=== PATIENT | female | born 1995 | race Caucasian/White ===

== ENCOUNTER 2017-11-03 11:07 | Emergency (ER) | payer MEDICAID ==
[2015-03-03 13:05] VITALS: Wt 63.5 kg
[~2017-11-03 11:07] MED LIST: ACE3 PO; AMIT-108 PO; AMO875 PO; ASPI-692 PO; AUG875 PO; AZIT1PAC21 PO; BUTA1TAB14 PO; CEP500 PO; CIP500 PO; DOCU240C84 PO; ETON68IM2 SQ; FLU20 PO; FLUO-201 PO; FLUO-202 PO; HYDC1T TOP; IBUP-1618 PO; IBUP600T22 PO; KET10 PO; LOR5/325 PO; NIT100 PO; NORG1TAB74 PO; NORG1TAB75 PO; ONDA4TAB PO; OXYC-865 PO; PHEN-530 PO; PHEN240S3 PO; POLY119P24 PO; PREN-176 PO; PREN-85 PO; PROM12.514 RC; SULF-198 PO; SUMA50TA34 PO; TRI SPRINTEC; TRI SPRINTEC PO; birth control pill
[2017-11-03] MEDS ORDERED: FLUO40CA76 PO (11:16)
[2017-11-03] MEDS ORDERED: NORG1TAB75 PO (11:16)
--- NOTE | 2017-11-03 11:17 | ER Report ---
History and Physical Time Seen By MD: 11:17 Hx. of Stated Complaint: Lower abdomen pain, bleeding with intercourse HPI/ROS CHIEF COMPLAINT: Lower abdominal pain, bleeding after intercourse HISTORY OF PRESENT ILLNESS: 21-year-old female patient presents to emergency room with complaint of lower abdominal pain and bleeding after intercourse. Patient states this been going on for the past 6 months off and on. She states this been very heavily for the past week. She states that she has had significant amounts of bleeding after intercourse last 3 times a day had intercourse. She states she's also noticed some pain with intercourse. She states that the pain is worse with any type of activity. She denies any nausea, vomiting or diarrhea. She states that eating does not seem to make the pain better or worse. Patient states she is not taking any medication for this. REVIEW OF SYSTEMS: Respiratory: No cough, no dyspnea. Cardiovascular: No chest pain, no palpitations. Gastrointestinal: As noted above Musculoskeletal: No back pain. Allergies: Coded Allergies: No Known Drug Allergies (Verified , 11/03/17) Home Meds Active Scripts Metronidazole (METRONIDAZOLE) 500 Mg Tablet, 500 MG PO BID, #28 TAB Prov:DAGOBERTO REYNAGA IS SUPPORT ANALYST 11/03/17 Doxycycline Hyclate (DOXYCYCLINE HYCLATE) 100 Mg Tablet, 100 MG PO BID, #28 TAB Prov:DAGOBERTO REYNAGAP 11/03/17 Reported Medications Norgestimate-Ethinyl Estradiol (TRI-SPRINTEC) 1 Each Tablet, 1 EACH PO DAILY 11/03/17 Fluoxetine Hcl (PROZAC) 40 Mg Capsule, 40 MG PO QDAY, CAPSULE 11/03/17 Butalb/Acetaminophen/Caff 50-325-40 Mg (FIORICET 50-325-40) 1 Each Tablet, 1-2 TAB PO Q4H Y for HEADACHE, #30 TAB 10/30/17 Discontinued Reported Medications [Tri Sprintec] No Conflict Check, PO QDAY 10/29/17 Fluoxetine Hcl (PROZAC) 10 Mg Capsule, 10 MG PO QDAY, CAPSULE 03/03/15 Aspirin/Acetaminophen/Caffeine (EXCEDRIN MIGRAINE CAPLET) 1 Each Tablet, 1 EACH PO PRN Y for MIGRAINE 10/29/17 Vit/Fe Fum/Calderon/Fa ( 19 TABLET) 1 Each Tablet, 1 EACH PO QDAY 11/08/14 Discontinued Scripts Oxycodone Hcl/Acetaminophen (PERCOCET 5-325 MG TABLET) 1 Each Tablet, 1 EACH PO Q4-6H Y for PAIN, #10 TAB Prov:DAGOBERTO REYNAGA IS SUPPORT ANALYST 02/07/16 Past Medical/Surgical History Patient has a past medical history of migraines, hypertension, asthma, frequent UTI, right ankle fracture, back pain, bleeding disorder, eczema, depression, substance abuse. Patient has a surgical history of tonsillectomy, wisdom teeth removed, section 2. Patient denies any pertinent family medical history. Reviewed Nurses Notes: Yes Hx Smoking: Yes Smoking Status: Current: Every Day Smoker, Former Smoker, Light Tobacco Smoker Exposure to Second Hand Smoke?: Yes Hx Substance Use Disorder: No Hx Alcohol Use: No Constitutional Vital Sign - Last 24 Hours 11/03/17 11/03/17 11/03/17 11/03/17 11:07 11:10 11:12 11:30 Temp 97.9 Pulse ??? 69 Resp 16 B/P (MAP) 133/91 133/91 (105) 125/77 (93) Pulse Ox 96 O2 Delivery Room Air 11/03/17 11/03/17 11/03/17 11:37 12:00 12:07 Pulse 56 67 B/P (MAP) 110/75 (87) Pulse Ox 98 94 Physical Exam General Appearance: The patient is alert, has no immediate need for airway protection and no current signs of toxicity. Respiratory: Chest is non tender, lungs are clear to auscultation. Cardiac: regular rate and rhythm Gastrointestinal: Abdomen is soft and tender in the suprapubic region bilaterally, no masses, bowel sounds normal. Musculoskeletal: Neck: Neck is supple and non tender. Extremities have full range of motion and are non tender. Skin: No rashes or lesions. DIFFERENTIAL DIAGNOSIS: After history and physical exam differential diagnosis was considered for PID, bacterial vaginitis, appendicitis, urinary tract infection. Medical Decision Making Data Points Result Diagram: 11/03/17 1122 11/03/17 1122 Laboratory Hematology Test 11/03/17 11:04 11/03/17 11:22 11/03/17 12:02 Urine Color Straw Urine Clarity Clear Urine pH 6.0 pH (4.8-9.5) Urine Specific [place] 1.003 Urine Protein Negative mg/dL (NEGATIVE) Urine Glucose (UA) Negative mg/dL (NEGATIVE) Urine Ketones Negative mg/dL (NEGATIVE) Urine Blood Small (NEGATIVE) Urine Nitrite Negative (NEGATIVE) Urine Bilirubin Negative (NEGATIVE) Urine Urobilinogen Negative mg/dL (0.2-1.9) Urine Leukocyte Esterase Trace (NEGATIVE) Urine RBC <1 /HPF (0-2/HPF) Urine WBC 2 /HPF (0-5/HPF) Urine Squamous Epithelial Cells Many /LPF (</=FEW) Urine Bacteria Few /HPF (NONE-FEW) Urine Mucus None /HPF (NONE-FEW) Red Blood Count 4.87 M/uL (4.17-5.56) Mean Corpuscular Volume 85.9 fL (80.0-96.0) Mean Corpuscular Hemoglobin 29.8 pg (26.0-33.0) Mean Corpuscular Hemoglobin Concent 34.6 g/dL (32.0-36.0) Red Cell Distribution Width 13.2 % (11.5-14.5) Mean Platelet Volume 8.7 fL (7.2-11.1) Neutrophils (%) (Auto) 58.3 % (39.4-72.5) Lymphocytes (%) (Auto) 36.7 % (17.6-49.6) Monocytes (%) (Auto) 3.8 % (4.1-12.4) Eosinophils (%) (Auto) 0.8 % (0.4-6.7) Basophils (%) (Auto) 0.4 % (0.3-1.4) Nucleated RBC Relative Count (auto) 0.0 /100WBC Neutrophils # (Auto) 5.2 K/uL (2.0-7.4) Lymphocytes # (Auto) 3.2 K/uL (1.3-3.6) Monocytes # (Auto) 0.3 K/uL (0.3-1.0) Eosinophils # (Auto) 0.1 K/uL (0.0-0.5) Basophils # (Auto) 0.0 K/uL (0.0-0.1) Nucleated RBC Absolute Count (auto) 0.00 K/uL Sodium Level 139 mmol/L (137-145) Potassium Level 3.9 mmol/L (3.5-5.0) Chloride Level 102 mmol/L (98-107) Carbon Dioxide Level 25 mmol/L (22-31) Blood Urea Nitrogen 13 mg/dl (7-18) Creatinine 0.80 mg/dl (0.52-1.04) Glomerular Filtration Rate Calc > 60.0 Random Glucose 83 mg/dl (75-110) Calcium Level 9.5 mg/dl (8.4-10.2) Total Bilirubin 0.3 mg/dl (0.2-1.3) Aspartate Amino Transf (AST/SGOT) 35 U/L (0-35) Alanine Aminotransferase (ALT/SGPT) 23 U/L (0-56) Alkaline Phosphatase 67 U/L (0-126) C-Reactive Protein 1.5 mg/dl (<1.0) Total Protein 7.6 g/dl (6.3-8.2) Albumin 4.5 g/dl (3.5-5.0) Human Chorionic Gonadotropin, Qual Negative (NEGATIVE) Chemistry Test 11/03/17 11:04 11/03/17 11:22 11/03/17 12:02 Urine Color Straw Urine Clarity Clear Urine pH 6.0 pH (4.8-9.5) Urine Specific [place] 1.003 Urine Protein Negative mg/dL (NEGATIVE) Urine Glucose (UA) Negative mg/dL (NEGATIVE) Urine Ketones Negative mg/dL (NEGATIVE) Urine Blood Small (NEGATIVE) Urine Nitrite Negative (NEGATIVE) Urine Bilirubin Negative (NEGATIVE) Urine Urobilinogen Negative mg/dL (0.2-1.9) Urine Leukocyte Esterase Trace (NEGATIVE) Urine RBC <1 /HPF (0-2/HPF) Urine WBC 2 /HPF (0-5/HPF) Urine Squamous Epithelial Cells Many /LPF (</=FEW) Urine Bacteria Few /HPF (NONE-FEW) Urine Mucus None /HPF (NONE-FEW) White Blood Count 8.9 k/uL (4.5-11.0) Red Blood Count 4.87 M/uL (4.17-5.56) Hemoglobin 14.5 g/dL (12.0-16.0) Hematocrit 41.8 % (34.0-47.0) Mean Corpuscular Volume 85.9 fL (80.0-96.0) Mean Corpuscular Hemoglobin 29.8 pg (26.0-33.0) Mean Corpuscular Hemoglobin Concent 34.6 g/dL (32.0-36.0) Red Cell Distribution Width 13.2 % (11.5-14.5) Platelet Count 293 K/uL (150-450) Mean Platelet Volume 8.7 fL (7.2-11.1) Neutrophils (%) (Auto) 58.3 % (39.4-72.5) Lymphocytes (%) (Auto) 36.7 % (17.6-49.6) Monocytes (%) (Auto) 3.8 % (4.1-12.4) Eosinophils (%) (Auto) 0.8 % (0.4-6.7) Basophils (%) (Auto) 0.4 % (0.3-1.4) Nucleated RBC Relative Count (auto) 0.0 /100WBC Neutrophils # (Auto) 5.2 K/uL (2.0-7.4) Lymphocytes # (Auto) 3.2 K/uL (1.3-3.6) Monocytes # (Auto) 0.3 K/uL (0.3-1.0) Eosinophils # (Auto) 0.1 K/uL (0.0-0.5) Basophils # (Auto) 0.0 K/uL (0.0-0.1) Nucleated RBC Absolute Count (auto) 0.00 K/uL Glomerular Filtration Rate Calc > 60.0 Calcium Level 9.5 mg/dl (8.4-10.2) Total Bilirubin 0.3 mg/dl (0.2-1.3) Aspartate Amino Transf (AST/SGOT) 35 U/L (0-35) Alanine Aminotransferase (ALT/SGPT) 23 U/L (0-56) Alkaline Phosphatase 67 U/L (0-126) C-Reactive Protein 1.5 mg/dl (<1.0) Total Protein 7.6 g/dl (6.3-8.2) Albumin 4.5 g/dl (3.5-5.0) Human Chorionic Gonadotropin, Qual Negative (NEGATIVE) Urinalysis Test 11/03/17 11:04 Urine Color Straw Urine Clarity Clear Urine pH 6.0 pH (4.8-9.5) Urine Specific [place] 1.003 Urine Protein Negative mg/dL (NEGATIVE) Urine Glucose (UA) Negative mg/dL (NEGATIVE) Urine Ketones Negative mg/dL (NEGATIVE) Urine Blood Small (NEGATIVE) Urine Nitrite Negative (NEGATIVE) Urine Bilirubin Negative (NEGATIVE) Urine Urobilinogen Negative mg/dL (0.2-1.9) Urine Leukocyte Esterase Trace (NEGATIVE) Urine RBC <1 /HPF (0-2/HPF) Urine WBC 2 /HPF (0-5/HPF) Urine Squamous Epithelial Cells Many /LPF (</=FEW) Urine Bacteria Few /HPF (NONE-FEW) Urine Mucus None /HPF (NONE-FEW) Microbiology Microbiology Date/Time Source Procedure Growth Status 11/03/17 12:02 Cervical Wet Prep - Final Complete EKG/Imaging Imaging ABDOMEN/PELVIS WITH CONTRAST HISTORY:abdominal pain TECHNIQUE: CT abdomen and pelvis with intravenous contrast. Contiguous axial images of the abdomen and pelvis was performed from the lung bases to the symphysis pubis. One of the following dose optimization techniques was utilized in the performance of this exam: Automated exposure control; adjustment of the mA and/ or kV according to the patient's size; or use of an iterative reconstruction technique. Specific details can be referenced in the facility's radiology CT exam operational policy. CONTRAST: 75 cc of Isovue-370 COMPARISON: None. FINDINGS: Visualized lung bases: Several small pulmonary micronodules are noted at the lung bases likely benign in this age group. These nodules measure up to 3 mm. Nodules are seen in the right middle lobe image 6, right lower lobe image 7, left for lobe image 5, left upper lobe image 9. Hepatobiliary: Negative. Spleen: Negative. Adrenals: Negative. Kidneys/: Negative. Pancreas: Negative. GI: Patient is constipated but there is no bowel obstruction or focal inflammation. Appendix is not visualized but there are no inflammatory changes around cecum. Vessels/spaces/nodes: Negative. Bones/soft tissues: Bilateral L5 spondylolysis is noted. IMPRESSION: 1. A source for abdominal pain is not forthcoming on the current study. The appendix is not visualized but there are no inflammatory changes around cecum. 2. Constipation. 3. Small pulmonary micronodules at the lung bases likely benign in this age group. Report Dictated By: Jacobo Mcneil MD at 11/03/2017 1:18 PM Report E-Signed By: Jacobo Mcneil MD at 11/03/2017 1:25 PM ED Course/Re-evaluation ED Course Patient was admitted and examined, history and physical were obtained. Differential diagnoses were considered. On examination lungs are clear, heart is regular, abdomen was soft. Patient did have some suprapubic abdominal pain. She had pain with palpation. An IV was started, CBC, CMP, CRP, urinalysis were obtained. The lab showed a normal white count, CRP was elevated, urinalysis was negative. I discussed the findings with the patient. A pelvic exam was done as described below. I discussed the findings with patient. I believe the bleeding with intercourse is likely caused from her friable cervix. I believe that she likely has a PID. A CT scan of abdomen and pelvis was done to make sure there is not any significant inflammatory changes in the pelvis. I was read by the radiologist as normal. I discussed the findings with the patient and her significant other. Due to her age and do worry about possible sexual chest disease. We will go ahead and treat her with doxycycline as well as metronidazole. She states those for the next 2 weeks. We will go ahead and treat her significant other with azithromycin 1 g. I encouraged sexual abstinence all she is on antibiotics as long as she is feeling well. I would like her to follow-up with her catering administrative assistant next week. Patient and her significant other verbalized understanding and agreement with plan. Pelvic exam: The vulva was normal no lesions. The vagina [did not have significant discharge.] The cervix was closed and easily friable with moderate purulent drainage. The uterus was normal size and tender. The adnexa had no masses but were tenderness. The exam was performed with a educational interpreter. Decision to Disposition Date: Nov 03, 2017 Decision to Disposition Time: 14:11 Depart Departure Latest Vital Signs Vital Signs Date Time Temp Pulse Resp B/P (MAP) Pulse Ox O2 Delivery O2 Flow Rate FiO2 11/03/17 12:07 67 94 11/03/17 12:00 110/75 (87) 11/03/17 11:10 97.9 16 Room Air Impression: Primary Impression: PID (acute pelvic inflammatory disease) Condition: Improved Disposition: HOME OR SELF-CARE Referrals: SHAGUFTA ALCANTARA MD (PCP) New Scripts Metronidazole (METRONIDAZOLE) 500 Mg Tablet 500 MG PO BID, #28 TAB Prov: DAGOBERTO REYNAGA 11/03/17 Doxycycline Hyclate (DOXYCYCLINE HYCLATE) 100 Mg Tablet 100 MG PO BID, #28 TAB Prov: DAGOBERTO REYNAGA 11/03/17 Patient Instructions: Pelvic Inflammatory Disease (ED) Additional Instructions: Increase fluid intake. Get plenty of rest. Follow up with your Aerial Survey Technician in the next week. Limit activity by pain. No intercourse until you have completed the antibiotics and you are feeling better. Return to the ER if condition worsens. DAGOBERTO REYNAGA Nov 03, 2017 11:17
[2017-11-03] MEDS ORDERED: NS(*) 0.9% 1000 ML BAG 1,000 ML IV ONE (11:23)
[2017-11-03 11:35] LABS: PLATELET COUNT, AUTOMATED 293 K/uL (150-450)
[2017-11-03 12:00] VITALS: BP 110/75
[2017-11-03] MEDS ORDERED: IOPAMIDOL 76% 75 ML INFUS BTL 75 ML ONE (12:26)
--- NOTE | 2017-11-03 13:29 | RADIOLOGY IMAGING REPORT ---
FACILITY: [facility] PATIENT NAME: Saida Mckeon : 1995 MR: [id number] V: [id number] EXAM DATE: ORDERING PHYSICIAN: DAGOBERTO REYNAGA TECHNOLOGIST: Location: [facility] - [place] Patient: Saida Mckeon : 1995 Visit/Account:[id number] Date of Sevice: 11/03/2017 ABDOMEN/PELVIS WITH CONTRAST HISTORY:abdominal pain TECHNIQUE: CT abdomen and pelvis with intravenous contrast. Contiguous axial images of the abdomen and pelvis was performed from the lung bases to the symphysis pubis. One of the following dose optimization techniques was utilized in the performance of this exam: Autom ated exposure control; adjustment of the mA and/or kV according to the patient's size; or use of an i terative reconstruction technique. Specific details can be referenced in the facility's radiology C T exam operational policy. CONTRAST: 75 cc of Isovue-370 COMPARISON: None. FINDINGS: Visualized lung bases: Several small pulmonary micronodules are noted at the lung bases likely benig n in this age group. These nodules measure up to 3 mm. Nodules are seen in the right middle lobe imag e 6, right lower lobe image 7, left for lobe image 5, left upper lobe image 9. Hepatobiliary: Negative. Spleen: Negative. Adrenals: Negative. Kidneys/: Negative. Pancreas: Negative. GI: Patient is constipated but there is no bowel obstruction or focal inflammation. Appendix is not visualized but there are no inflammatory changes around cecum. Vessels/spaces/nodes: Negative. Bones/soft tissues: Bilateral L5 spondylolysis is noted. IMPRESSION: 1. A source for abdominal pain is not forthcoming on the current study. The appendix is not visualiz ed but there are no inflammatory changes around cecum. 2. Constipation. 3. Small pulmonary micronodules at the lung bases likely benign in this age group. Report Dictated By: Jacobo Mcneil MD at 11/03/2017 1:18 PM Report E-Signed By: Jacobo Mcneil MD at 11/03/2017 1:25 PM WSN:[id number]
[2017-11-03] MEDS ORDERED: DOXY-179 PO (14:08)
[2017-11-03] MEDS ORDERED: METR-160 PO (14:08)
[2017-11-05] MEDS ORDERED: CEFT1VIA57 IJ (14:01)
== END 2017-11-03 14:24 | disposition home or self-care (01) ==
LOC: ER 11:10
DX: N73.9 Female pelvic inflammatory disease, unspecified (principal)
CPT/HCPCS: 74177; 81001; 84703; 85025; 86140; 87210; 87491; 87591; 99284; Q9967; 82040; 82247; 82310; 82374; 82435; 82565; 82947; 84075; 84132; 84155; 84295; 84450; 84460; 84520

== ENCOUNTER 2017-11-06 02:36 | Day surgery (SDC) | payer MEDICAID ==
[2015-03-03 13:05] VITALS: Ht 147.3 cm; Wt 62.1 kg
[~2017-11-06] VITALS: Ht 147.3 cm; Wt 62.1 kg
[~2017-11-06 02:36] MED LIST changes: +CEFT1VIA57 IJ; +DOXY-179 PO; +FLUO40CA76 PO; +METR-160 PO
[2017-11-06] MEDS ORDERED: fentaNYL CITR 100 MCG/2 ML AMP ONE (06:37)
[2017-11-06] MEDS ORDERED: PROPOFOL EMUL(*) 10MG/ML 20 ML 40 ML ONE (06:38)
[2017-11-06] MEDS ORDERED: ONDANSETRON 4 MG/2 ML VIAL ONE (06:38)
[2017-11-06] MEDS ORDERED: LIDOCAINE MPF 1% 5 ML VIAL ONE (06:38)
[2017-11-06] MEDS ORDERED: ceFAZolin(*) 1 GM VIAL 1 GM in NS(*) 0.9% 100 ML ADDVANT BAG 100 ML IVPB ONE (07:00)
[2017-11-06] MEDS ORDERED: FAMOTIDINE 20 MG TAB PO ONE (07:00)
[2017-11-06] MEDS ORDERED: NORMOSOL R SOLN(*) 1000 ML BAG 1,000 ML IV PRN (07:00)
[2017-11-06] MEDS ORDERED: LIDOCAINE/SOD BICARB 8.4% SYR ID ONE (07:00)
[2017-11-06] MEDS ORDERED: CELECOXIB 200 MG CAP PO ONE (07:00)
[2017-11-06] MEDS ORDERED: MIDAZOLAM 2 MG/2 ML VIAL IVP PRN (07:00)
[2017-11-06 07:51] VITALS: BP 122/82
[2017-11-06] MEDS ORDERED: LIDOCAINE 2% MDV 400MG/20ML VL ONE (08:04)
[2017-11-06] MEDS ORDERED: ROPIVACAINE 0.2% 20 ML VIAL ONE (08:04)
[2017-11-06 09:58] VITALS: BP 103/73
[2017-11-06] MEDS ORDERED: HYDR-4309 PO (10:06)
[2017-11-06 10:15] VITALS: BP 115/42
[2017-11-06 10:22] VITALS: BP 113/82
[2017-11-06 10:24] VITALS: BP 119/80
[2017-11-06] MEDS ORDERED: APAP/HYDROCODONE 325/5 TAB PO PRN (10:50)
--- NOTE | 2017-11-06 12:32 | OPERATIVE REPORT 1 ---
EVENT DATE: November 06, 2017 SURGEON: Maehsh Marin MD ANESTHESIOLOGIST: Micah Lopez MD ANESTHESIA: MAC plus local. VEGETABLE HANDLER: Bryan Wright PA-C PREOPERATIVE DIAGNOSIS Right carpal tunnel syndrome. POSTOPERATIVE DIAGNOSIS Right carpal tunnel syndrome. PROCEDURE PERFORMED Right endoscopic carpal tunnel release. FINDINGS The patient had a tight transverse carpal ligament but was amenable to for release. ESTIMATED BLOOD LOSS Minimal. DRAINS None COMPLICATIONS None. IMPLANTS USED Not applicable. SPECIMENS None. TOURNIQUET TIME About 8 minutes. INDICATIONS AND HISTORY This patient is a 21-year-old female that presented to my clinic for evaluation of right hand numbness, tingling, pain, and issues associated with carpal tunnel. The imaging confirmed that she had carpal tunnel, and so therefore we talked about conservative vs. operative management. She wanted to have a release associated with this as she felt like she had failed conservative management. Therefore, we went over the risks and benefits associated with this and informed consent was obtained with the last clinic visit. DESCRIPTION OF PROCEDURE The patient was brought to the operating room. She and the procedure both verified. She was placed supine on the operating table and given sedation by anesthesia. I then put in a 2% Lidocaine block in the base of the wrist and then I was able to prep and drape the right hand. Another timeout was observed , verifying the correct patient and procedure. After making a small incision just proximal to the wrist crease, I was able to go through the skin and subcutaneous tissue. I was then able to dissect down to the palmaris longus. Once I was able to go to the palmaris longus, I was then able to retract it to the radial side, and then was able to get down onto the transverse palmar fascia. Once onto the transverse palmar fascia, I made a small omar in this and then released it proximally and the was able to get underneath the transverse carpal ligament. Once down to the transverse carpal ligament, I was able to use to the dilator and then the synovial stripper out of the MicroAire system and then inserted the MicroAire systems without any difficulty. Once I got to the end of the transverse carpal ligament on the MicroAire system, I was then able to feather through it with the blade making sure that there was good separation associated with any know viral structures that were in the way. I then put the blade all the way up and cut all of the way back to make a nice clean cut along the transverse carpal ligament. I then put the instrumentation back and released a couple of adhesions and then looked both radial and ulnarly, found a good radial and ulnar flap, looked at the nerve directly and saw no other signs of problems associated with this, and so therefore removed all instrumentation, irrigated with copious amounts of saline, then closed the skin with a 4-0 Prolene in interrupted subcuticular fashion with the ends tied on the outside, dressed it with Steri-Strips, gauze 4 by 4's and a soft dressing. The tourniquet was let down after 8 minutes and she was transferred to the PACU in stable condition. CARMELA
== END 2017-11-06 11:22 | disposition home or self-care (01) ==
LOC: OR 02:36
PROVIDERS: ATTEND Orthopaedic Surgery
DX: G56.01 Carpal tunnel syndrome, right upper limb (principal); F32.9 Major depressive disorder, single episode, unspecified
CPT/HCPCS: 29848; 81025; J0690; J2001; J2250; J2405; J2704; J2795; J3010; J7050

== ENCOUNTER 2018-01-10 01:05 | Emergency (ER) | payer MEDICAID ==
[2015-03-03 13:05] VITALS: Wt 62.1 kg
[~2018-01-10 01:05] MED LIST changes: -CEFT1VIA57 IJ; +CEFT1VIA63 IJ; +HYDR-653 PO
--- NOTE | 2018-01-10 01:46 | ER Report ---
History and Physical Time Seen By MD: 01:46 Hx. of Stated Complaint: severe abdominal pain that started around 11pm. happened on sat but not as bad HPI/ROS TCHIEF COMPLAINT: epigastric pain HISTORY OF PRESENT ILLNESS: This is a 22 year old female. She has epigastric pain. Severe pain started about 11pm last night. Has had mild pain for about a week. Last Sunday, had nausea and severe pain while camping and after eating chili-dogs. Having intermittent pain since then, no foods clearly worsen the pain. No prior history of problems like this. No prior surgeries. No history of gallbladder, pancreas or stomach/ulcer problems. She is under a lot of stress with school, work and being a mother. She is taking increased NSAIDs recently, Ibuprofen. Has no fevers or chills with this. Pain not made worse or improved by anything. Has had intermittent nausea and vomiting with this. REVIEW OF SYSTEMS: Constitutional: No fevers or chills.] Eyes: No discharge. ENT: No sore throat. No congestion. Cardiovascular: No chest pain. Respiratory: No shortness of breath. Gastrointestinal: Has had some increased loose stools. Genitourinary: No dysuria. Musculoskeletal: No back pain. Skin: No rashes. Neurological: No numbness. No weakness. Allergies: Coded Allergies: No Known Drug Allergies (Verified , 01/10/18) Home Meds Active Scripts Tramadol Hcl (TRAMADOL HCL) 50 Mg Tablet, 50 MG PO Q6H PRN for PAIN, #15 TAB 0 Refills Prov:HERB ROSALES MD 01/10/18 Amoxicillin/Pot Clav 875-125 Mg Tab (AUGMENTIN 875-125 TABLET) 1 Each Tablet, 1 TAB PO Q12H, #14 TAB 0 Refills Prov:HERB ROSALES MD 01/10/18 Sucralfate (CARAFATE) 1 Gm Tablet, 1 GM PO QID, #120 TAB 0 Refills Prov:HERB ROSALES MD 01/10/18 Pantoprazole Sodium (PANTOPRAZOLE SODIUM) 40 Mg Tablet.dr, 40 MG PO BID, #60 TAB.SR 0 Refills Prov:HERB ROSALES MD 01/10/18 Fluoxetine Hcl (PROZAC) 40 Mg Capsule, 40 MG PO QDAY, #90 CAPSULE 1 Refill Prov:CAROL SUAZO DO 12/28/17 Metronidazole (METRONIDAZOLE) 500 Mg Tablet, 500 MG PO BID, #28 TAB Prov:DAGOBERTO REYNAGA [employer] 11/03/17 Reported Medications Norgestimate-Ethinyl Estradiol (TRI-SPRINTEC) 1 Each Tablet, 1 EACH PO DAILY 11/03/17 Discontinued Reported Medications Hydrocodone Bit/Acetaminophen (NORCO 5-325 TABLET) 1 Each Tablet, 1 EACH PO Q4 PRN for PAIN, #20 TAB 11/06/17 Butalb/Acetaminophen/Caff 50-325-40 Mg (FIORICET 50-325-40) 1 Each Tablet, 1-2 TAB PO Q4H PRN for HEADACHE, #30 TAB 10/30/17 Discontinued Scripts Doxycycline Hyclate (DOXYCYCLINE HYCLATE) 100 Mg Tablet, 100 MG PO BID, #28 TAB Prov:DAGOBERTO REYNAGA [facility] 11/03/17 Reviewed Nurses Notes: Yes Hx Smoking: Yes Smoking Status: Current: Every Day Smoker, Former Smoker, Light Tobacco Smoker Exposure to Second Hand Smoke?: Yes Hx Substance Use Disorder: No Hx Alcohol Use: No Constitutional Vital Sign - Last 24 Hours 01/10/18 01/10/18 01/10/18 01:30 02:05 02:23 Temp 99.4 Pulse 103 118 Resp 20 B/P (MAP) 128/98 122/90 (101) Pulse Ox 99 100 O2 Delivery Room Air Physical Exam General Appearance: The patient is alert. Acute distress due to pain. Non- toxic in appearance. Eyes: Pupils are equal, round. No pallor, injection or icterus. ENT: Mucous membranes are moist. Normal oral mucosa. Posterior oropharynx is normal. Neck: Supple and non tender. Respiratory: Lungs are clear to auscultation. Cardiovascular: Regular rate and rhythm. No murmurs, gallops or rubs. Normal capillary refill. Gastrointestinal: abdomen is soft, very tender in epigastric area. Negative Mayo's sign. Small amount of pain in right lower quadrant as well. Nondistended. Guarding in epigastric area, but no rebound. Normal active bowel sounds. No costovertebral angle tenderness with percussion. Neurological: Alert and oriented x3. No focal neurologic deficits Skin: Warm and dry. No rashes. Musculoskeletal: Extremities are nontender. No tenderness in palpation of the cervical, thoracic and lumbar spine. DIFFERENTIAL DIAGNOSIS: After history and physical exam, differential diagnosis was considered for epigastric pain including but not limited to biliary colic, cholecystitis, peptic ulcer disease, pancreatitis, and gastroenteritis. Medical Decision Making Data Points Result Diagram: 01/10/18 0143 01/10/18 0143 Laboratory Hematology Test 01/10/18 01:22 01/10/18 01:43 Urine Color Yellow Urine Clarity Slightly-cloudy Urine pH 7.0 pH (4.8-9.5) Urine Specific [place] 1.016 Urine Protein Negative mg/dL (NEGATIVE) Urine Glucose (UA) Negative mg/dL (NEGATIVE) Urine Ketones Negative mg/dL (NEGATIVE) Urine Blood Negative (NEGATIVE) Urine Nitrite Positive (NEGATIVE) Urine Bilirubin Negative (NEGATIVE) Urine Urobilinogen Negative mg/dL (0.2-1.9) Urine Leukocyte Esterase Small (NEGATIVE) Urine RBC <1 /HPF (0-2/HPF) Urine WBC 15 /HPF (0-5/HPF) Urine Squamous Epithelial Cells Many /LPF (</=FEW) Urine Transitional Epithelial Cells Few /LPF (NONE-FEW) Urine Bacteria Few /HPF (NONE-FEW) Urine Mucus None /HPF (NONE-FEW) Red Blood Count 5.07 M/uL (4.17-5.56) Mean Corpuscular Volume 86.8 fL (80.0-96.0) Mean Corpuscular Hemoglobin 29.8 pg (26.0-33.0) Mean Corpuscular Hemoglobin Concent 34.4 g/dL (32.0-36.0) Red Cell Distribution Width 13.0 % (11.5-14.5) Mean Platelet Volume 8.8 fL (7.2-11.1) Neutrophils (%) (Auto) 55.7 % (39.4-72.5) Lymphocytes (%) (Auto) 38.0 % (17.6-49.6) Monocytes (%) (Auto) 5.1 % (4.1-12.4) Eosinophils (%) (Auto) 0.9 % (0.4-6.7) Basophils (%) (Auto) 0.3 % (0.3-1.4) Nucleated RBC Relative Count (auto) 0.1 /100WBC Neutrophils # (Auto) 5.5 K/uL (2.0-7.4) Lymphocytes # (Auto) 3.8 K/uL (1.3-3.6) Monocytes # (Auto) 0.5 K/uL (0.3-1.0) Eosinophils # (Auto) 0.1 K/uL (0.0-0.5) Basophils # (Auto) 0.0 K/uL (0.0-0.1) Nucleated RBC Absolute Count (auto) 0.01 K/uL Sodium Level 143 mmol/L (137-145) Potassium Level 3.5 mmol/L (3.5-5.0) Chloride Level 107 mmol/L (98-107) Carbon Dioxide Level 24 mmol/L (22-31) Blood Urea Nitrogen 16 mg/dl (7-18) Creatinine 0.90 mg/dl (0.52-1.04) Glomerular Filtration Rate Calc > 60.0 Random Glucose 117 mg/dl (75-110) Calcium Level 10.1 mg/dl (8.4-10.2) Total Bilirubin 0.2 mg/dl (0.2-1.3) Aspartate Amino Transf (AST/SGOT) 41 U/L (0-35) Alanine Aminotransferase (ALT/SGPT) 31 U/L (0-56) Alkaline Phosphatase 68 U/L (0-126) C-Reactive Protein 1.4 mg/dl (<1.0) Total Protein 7.6 g/dl (6.3-8.2) Albumin 4.4 g/dl (3.5-5.0) Amylase Level 78 U/L (0-110) Lipase 65 U/L (23-300) Human Chorionic Gonadotropin, Qual Negative (NEGATIVE) Chemistry Test 01/10/18 01:22 01/10/18 01:43 Urine Color Yellow Urine Clarity Slightly-cloudy Urine pH 7.0 pH (4.8-9.5) Urine Specific [place] 1.016 Urine Protein Negative mg/dL (NEGATIVE) Urine Glucose (UA) Negative mg/dL (NEGATIVE) Urine Ketones Negative mg/dL (NEGATIVE) Urine Blood Negative (NEGATIVE) Urine Nitrite Positive (NEGATIVE) Urine Bilirubin Negative (NEGATIVE) Urine Urobilinogen Negative mg/dL (0.2-1.9) Urine Leukocyte Esterase Small (NEGATIVE) Urine RBC <1 /HPF (0-2/HPF) Urine WBC 15 /HPF (0-5/HPF) Urine Squamous Epithelial Cells Many /LPF (</=FEW) Urine Transitional Epithelial Cells Few /LPF (NONE-FEW) Urine Bacteria Few /HPF (NONE-FEW) Urine Mucus None /HPF (NONE-FEW) White Blood Count 9.9 k/uL (4.5-11.0) Red Blood Count 5.07 M/uL (4.17-5.56) Hemoglobin 15.1 g/dL (12.0-16.0) Hematocrit 44.0 % (34.0-47.0) Mean Corpuscular Volume 86.8 fL (80.0-96.0) Mean Corpuscular Hemoglobin 29.8 pg (26.0-33.0) Mean Corpuscular Hemoglobin Concent 34.4 g/dL (32.0-36.0) Red Cell Distribution Width 13.0 % (11.5-14.5) Platelet Count 313 K/uL (150-450) Mean Platelet Volume 8.8 fL (7.2-11.1) Neutrophils (%) (Auto) 55.7 % (39.4-72.5) Lymphocytes (%) (Auto) 38.0 % (17.6-49.6) Monocytes (%) (Auto) 5.1 % (4.1-12.4) Eosinophils (%) (Auto) 0.9 % (0.4-6.7) Basophils (%) (Auto) 0.3 % (0.3-1.4) Nucleated RBC Relative Count (auto) 0.1 /100WBC Neutrophils # (Auto) 5.5 K/uL (2.0-7.4) Lymphocytes # (Auto) 3.8 K/uL (1.3-3.6) Monocytes # (Auto) 0.5 K/uL (0.3-1.0) Eosinophils # (Auto) 0.1 K/uL (0.0-0.5) Basophils # (Auto) 0.0 K/uL (0.0-0.1) Nucleated RBC Absolute Count (auto) 0.01 K/uL Glomerular Filtration Rate Calc > 60.0 Calcium Level 10.1 mg/dl (8.4-10.2) Total Bilirubin 0.2 mg/dl (0.2-1.3) Aspartate Amino Transf (AST/SGOT) 41 U/L (0-35) Alanine Aminotransferase (ALT/SGPT) 31 U/L (0-56) Alkaline Phosphatase 68 U/L (0-126) C-Reactive Protein 1.4 mg/dl (<1.0) Total Protein 7.6 g/dl (6.3-8.2) Albumin 4.4 g/dl (3.5-5.0) Amylase Level 78 U/L (0-110) Lipase 65 U/L (23-300) Human Chorionic Gonadotropin, Qual Negative (NEGATIVE) Urinalysis Test 01/10/18 01:22 Urine Color Yellow Urine Clarity Slightly-cloudy Urine pH 7.0 pH (4.8-9.5) Urine Specific [place] 1.016 Urine Protein Negative mg/dL (NEGATIVE) Urine Glucose (UA) Negative mg/dL (NEGATIVE) Urine Ketones Negative mg/dL (NEGATIVE) Urine Blood Negative (NEGATIVE) Urine Nitrite Positive (NEGATIVE) Urine Bilirubin Negative (NEGATIVE) Urine Urobilinogen Negative mg/dL (0.2-1.9) Urine Leukocyte Esterase Small (NEGATIVE) Urine RBC <1 /HPF (0-2/HPF) Urine WBC 15 /HPF (0-5/HPF) Urine Squamous Epithelial Cells Many /LPF (</=FEW) Urine Transitional Epithelial Cells Few /LPF (NONE-FEW) Urine Bacteria Few /HPF (NONE-FEW) Urine Mucus None /HPF (NONE-FEW) EKG/Imaging Imaging CT of the abdomen and pelvis with contrast: Indication: Epigastric and right-sided abdominal pain. Technique: Helical CT was performed through the abdomen and pelvis following IV contrast enhancement with 75 cc of Isovue-370. Multiplanar reconstructions are reviewed. One of the following dose optimization techniques was utilized in the performance of this exam: Automated exposure control; adjustment of the mA and/or kV according to the patient's size; or use of an iterative reconstruction technique. Specific details can be referenced in the facility's radiology CT exam operational policy. Comparison: 11/03/2017 Lower lung pearson: Tiny peripheral nodular opacities in the lower lung pearson are unchanged. No new parenchymal opacities are identified. There is no evidence of parenchymal consolidation or pleural effusion. Liver: Normal in size, shape, and density. There is uniform enhancement of the venous structures. Gallbladder/biliary tree: The gallbladder is normal in size and homogeneous in density. The bile ducts are not dilated. Pancreas: Normal in size, shape, and density. Spleen: Normal in size, shape, and density. Tiny accessory spleens appear unchanged. Adrenal glands: Within normal limits. Kidneys/urinary bladder: The kidneys are normal in size, shape, and density. There are no signs of urinary tract calculus or obstruction. The bladder appears homogeneous and unremarkable. Intestinal structures: The stomach appears dilated and filled with fluid. At the level of the antrum, there appears to be irregular thickening of the wall. Furthermore, there is a small amount of fluid density and air in the soft tissues adjacent to the antrum. The findings suggest penetrating ulcer, with localized perforation. The duodenal sweep appears unremarkable. The small bowel and colon are u nremarkable. The appendix is is not clearly delineated. Pelvis: The uterus and adnexal structures are unremarkable and unchanged. There is no evidence of fluid or inflammation in the pelvis. Aorta and vascular structures: Within normal limits. Ascites or fluid collections: None seen. Skeletal structures: Intact and unremarkable. Impression: Findings suspicious for penetrating ulcer, with localized perforation at the level of the gastric antrum. Report Dictated By: Hung Robb MD at 01/10/2018 3:01 AM ED Course/Re-evaluation Clinical Indication for ER IV: Hydration, IV Access ED Course Initial evaluation shows severe epigastric pain. This was controlled with some IV morphine and nausea improved with Zofran as well. Labs are unremarkable with a normal white count. Liver function tests and pancreatic enzymes negative as well. CT scan does show an abnormality with thickening in the antrum of the stomach with questionable microperforation suspicious for peptic ulcer disease. I explained this to the patient and started her on IV Protonix. Dr. Brush, general surgery, has been to the ER to evaluate the patient. The patient is electing to pursue outpatient treatment as she is feeling somewhat better and cannot miss school. We will start her on Carafate, Protonix. Also start Augmentin. Provide tramadol as well as [id number] Tylenol for pain. Follow up as an outpatient. Decision to Disposition Date: Jan 10, 2018 Decision to Disposition Time: 05:08 Depart Departure Latest Vital Signs Vital Signs Date Time Temp Pulse Resp B/P (MAP) Pulse Ox O2 Delivery O2 Flow Rate FiO2 01/10/18 02:23 122/90 (101) 01/10/18 02:05 118 100 01/10/18 01:30 99.4 20 Room Air Impression: Primary Impression: PUD (peptic ulcer disease) Condition: Improved Disposition: HOME OR SELF-CARE Referrals: MARK TERESA MD New Scripts Tramadol Hcl (TRAMADOL HCL) 50 Mg Tablet 50 MG PO Q6H PRN for PAIN, #15 TAB 0 Refills Prov: HERB ROSALES MD 01/10/18 Amoxicillin/Pot Clav 875-125 Mg Tab (AUGMENTIN 875-125 TABLET) 1 Each Tablet 1 TAB PO Q12H, #14 TAB 0 Refills Prov: HERB ROSALES MD 01/10/18 Sucralfate (CARAFATE) 1 Gm Tablet 1 GM PO QID, #120 TAB 0 Refills Prov: HERB ROSALES MD 01/10/18 Pantoprazole Sodium (PANTOPRAZOLE SODIUM) 40 Mg Tablet.dr 40 MG PO BID, #60 TAB.SR 0 Refills Prov: HERB ROSALES MD 01/10/18 Patient Instructions: Diet for Stomach Ulcers and Gastritis (ED), Peptic Ulcer (ED) Additional Instructions: Take Protonix 40mg twice a day. Take Carafate 1g tablets four times a day Take Augmentin 875/125 twice a day for 7 days. For pain, you can use Tylenol as needed. If more severe, Tramadol 50mg, one every 4 hours as needed for pain. No anti-inflammatories. Return if needed for fever/chills, worsening nausea and vomiting, or worsening pain. See Dr. Teresa as an outpatient, call his office for an appointment. HERB ROSALES MD Jan 10, 2018 01:46
[2018-01-10] MEDS ORDERED: NS(*) 0.9% 1000 ML BAG 1,000 ML IV ONE ×2 (01:56→03:40)
[2018-01-10] MEDS ORDERED: MORPHINE 4 MG/ML SDV IVP ONE (02:00)
[2018-01-10] MEDS ORDERED: ONDANSETRON 4 MG/2 ML VIAL IVP ONE (02:00)
[2018-01-10 02:08] LABS: PLATELET COUNT, AUTOMATED 313 K/uL (150-450)
[2018-01-10] MEDS ORDERED: IOPAMIDOL 76% 75 ML INFUS BTL 75 ML ONE (02:10)
--- NOTE | 2018-01-10 03:25 | RADIOLOGY IMAGING REPORT ---
FACILITY: [facility] PATIENT NAME: Saida Mckeon : 1995 MR: [id number] V: [id number] EXAM DATE: [id number] ORDERING PHYSICIAN: HERB ROSALES TECHNOLOGIST: Location: [facility] [place] Patient: Saida Mckeon : 1995 Visit/Account:[id number] Date of Sevice: 01/10/2018 CT of the abdomen and pelvis with contrast: Indication: Epigastric and right-sided abdominal pain. Technique: Helical CT was performed through the abdomen and pelvis following IV contrast enhancement with 75 cc of Isovue-370. Multiplanar reconstructions are reviewed. One of the following dose optimization techniques was utilized in the performance of this exam: Autom ated exposure control; adjustment of the mA and/or kV according to the patient's size; or use of an i terative reconstruction technique. Specific details can be referenced in the facility's radiology CT exam operational policy. Comparison: 11/03/2017 Lower lung pearson: Tiny peripheral nodular opacities in the lower lung pearson are unchanged. No new p arenchymal opacities are identified. There is no evidence of parenchymal consolidation or pleural eff usion. Liver: Normal in size, shape, and density. There is uniform enhancement of the venous structures. Gallbladder/biliary tree: The gallbladder is normal in size and homogeneous in density. The bile duct s are not dilated. Pancreas: Normal in size, shape, and density. Spleen: Normal in size, shape, and density. Tiny accessory spleens appear unchanged. Adrenal glands: Within normal limits. Kidneys/urinary bladder: The kidneys are normal in size, shape, and density. There are no signs of ur inary tract calculus or obstruction. The bladder appears homogeneous and unremarkable. Intestinal structures: The stomach appears dilated and filled with fluid. At the level of the antrum, there appears to be irregular thickening of the wall. Furthermore, there is a small amount of fluid density and air in the soft tissues adjacent to the antrum. The findings suggest penetrating ulcer, w ith localized perforation. The duodenal sweep appears unremarkable. The small bowel and colon are unremarkable. The appendix is is not clearly delineated. Pelvis: The uterus and adnexal structures are unremarkable and unchanged. There is no evidence of flu id or inflammation in the pelvis. Aorta and vascular structures: Within normal limits. Ascites or fluid collections: None seen. Skeletal structures: Intact and unremarkable. Impression: Findings suspicious for penetrating ulcer, with localized perforation at the level of the gastric antrum. Report Dictated By: Hung Robb MD at 01/10/2018 3:01 AM Report E-Signed By: Hung Robb MD at 01/10/2018 3:21 AM WSN:[id number]
[2018-01-10] MEDS ORDERED: PANTOPRAZOLE SOD(*)40 MG VIAL 80 MG in NS(*) 0.9% 100 ML BAG 100 ML IVPB ONE (03:40)
[2018-01-10] MEDS ORDERED: AMOX-559 PO (05:10)
[2018-01-10] MEDS ORDERED: TRAM-420 PO (05:10)
[2018-01-10] MEDS ORDERED: traMADol 50 MG TAB PO ONE (05:10)
[2018-01-10] MEDS ORDERED: SUCR1TAB85 PO (05:10)
[2018-01-10] MEDS ORDERED: PANT40TA65 PO (05:10)
[2018-01-10] MEDS ORDERED: SUCRALFATE 1 GM TAB PO ONE (05:10)
--- NOTE | 2018-01-10 05:12 | General Surgery Consultation ---
History of Present Illness Requesting Physician Dr. Nicole, emergency room Reason for Consult Peptic ulcer disease Chief Complaint Abdominal pain History of Present Illness 22-year-old female presents with 1 week of abdominal pain. She also reports nausea off and on for the last 10 days. The pain has been getting worse and over the last 24 hours became markedly worse. She came into the emergency room for evaluation where a CT scan is suspicious for peptic ulcer disease with a contained perforation just outside the antrum. I have been consult at for further advice on management. She is never before had peptic ulcer disease to her knowledge. She does take ibuprofen quite frequently. She denies hematemesis, early satiety, regurgitation, she has had stools that are more loose than normal but no blood in them either bright red or dark. History Problems: (1) Depression Status: Chronic (2) History of delivery affecting Status: Acute Home Meds Active Scripts Fluoxetine Hcl (PROZAC) 40 Mg Capsule, 40 MG PO QDAY, #90 CAPSULE 1 Refill Prov:CAROL SUAZO DO 12/28/17 Metronidazole (METRONIDAZOLE) 500 Mg Tablet, 500 MG PO BID, #28 TAB Prov:DAGOBERTO REYNAGA [employer] CL[employer] 11/03/17 Reported Medications Norgestimate-Ethinyl Estradiol (TRI-SPRINTEC) 1 Each Tablet, 1 EACH PO DAILY 11/03/17 Discontinued Reported Medications Hydrocodone Bit/Acetaminophen (NORCO 5-325 TABLET) 1 Each Tablet, 1 EACH PO Q4 PRN for PAIN, #20 TAB 11/06/17 Butalb/Acetaminophen/Caff 50-325-40 Mg (FIORICET 50-325-40) 1 Each Tablet, 1-2 TAB PO Q4H PRN for HEADACHE, #30 TAB 10/30/17 Discontinued Scripts Doxycycline Hyclate (DOXYCYCLINE HYCLATE) 100 Mg Tablet, 100 MG PO BID, #28 TAB Prov:DAGOBERTO REYNAGA [employer]UP CLERK 11/03/17 Allergies: Coded Allergies: No Known Drug Allergies (Verified , 01/10/18) Family History: FH: cancer MATERNAL GRANDMOTHER MATERNAL GRANDFATHER FH: depression MOTHER FH: diabetes mellitus FATHER PATERNAL UNCLE PATERNAL GRANDMOTHER FH: kidney failure FATHER FH: pulmonary embolism FATHER Review of Systems All Systems Reviewed/Normal: Yes, Except as Noted Gastrointestinal: Nausea, Vomiting, Abdominal Pain Exam Vital Signs Vital Signs Date Time Temp Pulse Resp B/P (MAP) Pulse Ox O2 Delivery O2 Flow Rate FiO2 01/10/18 02:23 122/90 (101) 01/10/18 02:05 118 100 01/10/18 01:30 99.4 20 Room Air General Appearance: Alert, Awake, No Acute Distress, Afebrile Neuro: No Gross deficits Eyes: PERRLA GI: Other (soft, there is some mild right periumbilical tenderness to palpation. There are no peritoneal signs, no palpable masses.) Extremities: Warm, Perfused Psych: Alert & Oriented X3, Appropriate Mood & Affect Medical Decision Making Data Points Result Diagram: 01/10/1814201/10/18142 Assessment and Plan Problems: (1) PUD (peptic ulcer disease) Status: Acute Assessment & Plan: 01/10/18: This patient has peptic ulcer disease with a contained perforation with a small fluid collection adjacent to the antrum. Her exam is completely benign and her white count is normal. I have discussed with her admitting her to the hospital and starting a proton pump inhibitor, Carafate, IV antibiotics, and pain control. 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 Her exam is benign, white count is normal, vitals are stable and so I think outpatient therapy is acceptable in her. I would start her on pantoprazole, 40 mg by mouth twice a day, Carafate, 1 g every before meals and at bedtime, Augmentin 875 mg twice a day for 1 week, and something to control her pain such as tramadol. I have advised her to refrain from taking any NSAIDs and I have explained what NSAIDs are but that Tylenol is okay for pain control as well. If she starts developing worsening nausea, vomiting, fevers, chills, worsening abdominal pain and she should present immediately back to the emergency room for further evaluation which will likely include a repeat CT scan as well as labs to look for a leukocytosis and free air in her abdomen. She seems to understand this discussion and seems happy with this plan to initiate therapy as an outpatient. I will see her back in my office in a few weeks and we will set up an outpatient EGD but I would not recommend an EGD and acute. And would prefer to allow this to begin healing before instrumenting her upper GI tract. Condition Stable Time Spent: < 30 min Venous Thromboembolism VTE Risk Physician Assess for VTE Risk: Yes Patient's VTE Risk: Low VTE Diagnostic Test 2 Days Prior to Admit: No Antithrombotics Is Pt On Any Antithrombotics?: No MARK TERESA MD Jan 10, 2018 05:12
[2018-01-10 05:30] VITALS: BP 107/75
== END 2018-01-10 06:07 | disposition home or self-care (01) ==
LOC: ER 01:55
DX: K27.9 Peptic ulcer, site unspecified, unspecified as acute or chronic, without hemorrhage or perforation (principal)
CPT/HCPCS: 74177; 81001; 82150; 83690; 84703; 85025; 86140; 96361; 96374; 96375; 99284; C9113; J2270; J2405; J7030; J7050; Q9967; 82040; 82247; 82310; 82374; 82435; 82565; 82947; 84075; 84132; 84155; 84295; 84450; 84460; 84520

== ENCOUNTER 2018-01-13 08:11 | Emergency (ER) | payer MEDICAID ==
[2015-03-03 13:05] VITALS: Wt 59.0 kg
[~2018-01-13 08:11] MED LIST changes: +AMOX-559 PO; +PANT40TA65 PO; +SUCR1TAB85 PO; +TRAM-420 PO
--- NOTE | 2018-01-13 08:17 | ER Report ---
History and Physical Time Seen By MD: 08:16 HPI/ROS CHIEF COMPLAINT: Right upper quadrant abdominal pain HISTORY OF PRESENT ILLNESS: Patient is a 22-year-old female who presents to the emergency department for evaluation of upper right-sided abdominal pain. The electronic medical record was reviewed. Patient was seen in the ER on 11/10/2017 for epigastric pain. Certain at that time for peptic ulcer disease with microperforation. Patient was seen in consultation by general surgery. Patient was placed on Protonix, Carafate as well as some antibiotics presumed to be treating H. pylori although no H pylori test was ordered. Patient was supposed to follow up with general surgery. Patient states she does not recall being seen by general surgery during her prior ER visit. Patient states she was compliant with medications that she was discharged with. Patient states this morning around 6:30 she woke up with severe epigastric and periumbilical abdominal pain. This caused her to vomit. Having voluminous diarrhea without blood or mucus. She denies or breast-feeding currently. Patient states the pain is severe she does have some right upper quadrant as well as right lower quadrant tenderness. REVIEW OF SYSTEMS: Constitutional: No fever, no chills. Eyes: No discharge. ENT: No sore throat. Cardiovascular: No chest pain, no palpitations. Respiratory: No cough, no shortness of breath. Gastrointestinal: Abdominal pain, vomiting, diarrhea Genitourinary: No hematuria. Musculoskeletal: No back pain. Skin: No rashes. Neurological: No headache. Allergies: Coded Allergies: No Known Drug Allergies (Verified , 01/10/18) Home Meds Active Scripts Metronidazole (FLAGYL) 500 Mg Tablet, 500 MG PO BID, #14 TAB 0 Refills Prov:MARY AGUDELO MD 01/13/18 Ciprofloxacin Hcl 500 Mg Tab (CIPRO 500 MG TAB) 500 Mg Tablet, 500 MG PO BID, #14 TAB 0 Refills Prov:MARY AGUDELO MD 01/13/18 Ondansetron Hcl (ZOFRAN) 4 Mg Tablet, 4 MG PO Q8H for Nausea, #15 TAB 0 Refills Prov:MARY AGUDELO MD 01/13/18 Dicyclomine Hcl (DICYCLOMINE HCL) 20 Mg Tablet, 20 MG PO QID for abdominal cramping, #20 TAB 0 Refills Prov:MARY AGUDELO MD 01/13/18 Tramadol Hcl (TRAMADOL HCL) 50 Mg Tablet, 50 MG PO Q6H PRN for PAIN, #15 TAB 0 Refills Prov:HERB ROSALES MD 01/10/18 Amoxicillin/Pot Clav 875-125 Mg Tab (AUGMENTIN 875-125 TABLET) 1 Each Tablet, 1 TAB PO Q12H, #14 TAB 0 Refills Prov:HERB ROSALES MD 01/10/18 Sucralfate (CARAFATE) 1 Gm Tablet, 1 GM PO QID, #120 TAB 0 Refills Prov:HERB ROSALES MD 01/10/18 Pantoprazole Sodium (PANTOPRAZOLE SODIUM) 40 Mg Tablet.dr, 40 MG PO BID, #60 TAB.SR 0 Refills Prov:HERB ROSALES MD 01/10/18 Fluoxetine Hcl (PROZAC) 40 Mg Capsule, 40 MG PO QDAY, #90 CAPSULE 1 Refill Prov:CAROL SUAZO DO 12/28/17 Metronidazole (METRONIDAZOLE) 500 Mg Tablet, 500 MG PO BID, #28 TAB Prov:DAGOBERTO REYNAGA 11/03/17 Reported Medications Norgestimate-Ethinyl Estradiol (TRI-SPRINTEC) 1 Each Tablet, 1 EACH PO DAILY 11/03/17 Discontinued Reported Medications Hydrocodone Bit/Acetaminophen (NORCO 5-325 TABLET) 1 Each Tablet, 1 EACH PO Q4 PRN for PAIN, #20 TAB 11/06/17 Butalb/Acetaminophen/Caff 50-325-40 Mg (FIORICET 50-325-40) 1 Each Tablet, 1-2 TAB PO Q4H PRN for HEADACHE, #30 TAB 10/30/17 Discontinued Scripts Doxycycline Hyclate (DOXYCYCLINE HYCLATE) 100 Mg Tablet, 100 MG PO BID, #28 TAB Prov:DAGOBERTO REYNAGA 11/03/17 Past Medical/Surgical History Prior visit for epigastric abdominal pain diagnosed with peptic ulcer disease Hx Smoking: Yes Smoking Status: Current: Every Day Smoker, Former Smoker, Light Tobacco Smoker Exposure to Second Hand Smoke?: Yes Hx Substance Use Disorder: No Hx Alcohol Use: No Constitutional Vital Sign - Last 24 Hours 01/13/18 01/13/18 01/13/18 01/13/18 08:11 08:19 08:20 08:30 Temp 97.8 Pulse 92 102 Resp 22 B/P (MAP) 105/80 (88) 105/80 121/80 (94) Pulse Ox 99 O2 Delivery Room Air 01/13/18 01/13/18 01/13/18 01/13/18 08:41 09:00 09:11 09:16 Pulse 90 91 89 B/P (MAP) 116/83 (94) Pulse Ox 98 100 82 O2 Delivery Room Air Room Air Room Air 01/13/18 01/13/18 01/13/18 09:30 10:00 10:16 Pulse 87 B/P (MAP) 117/85 (96) 119/83 (95) Pulse Ox 98 O2 Delivery Nasal Cannula O2 Flow Rate 2 Physical Exam General/Constitutional: Patient is awake, alert, nontoxic and in no acute respiratory distress. Head: Normocephalic and atraumatic. Eyes: Conjunctival clear, Sclera are clear and anicteric. Oropharyngeal: Mucous membranes are moist. There is no pharyngeal erythema or exudate. There are no palatal petechiae. Uvula is midline and symmetrical. Neck: Supple, no adenopathy. Cardiovascular: Heart is regular rate and rhythm without audible murmurs, rubs or gallops. Pulmonary: Lungs are clear to auscultation bilaterally. There are no wheezes, rales, or rhonchi. Chest rise is symmetrical Abdomen: Soft, tenderness to the right upper quadrant, left lower quadrant periumbilical area without guarding or rebound tenderness Extremities: No gross deformities, No peripheral cyanosis. Able to move all 4 extremities. Neuro: Alert and oriented X3, Skin: No rashes, skin is warm dry and well perfused. Medical Decision Making Data Points Result Diagram: 01/13/18 0856 01/13/18 0856 Laboratory Hematology Test 01/13/18 08:54 01/13/18 08:56 Stool Leukocytes, Qualitative Positive Clostridium Difficile Toxin A & B Negative Clostridium difficile Antigen Negative Red Blood Count 5.39 M/uL (4.17-5.56) Mean Corpuscular Volume 86.2 fL (80.0-96.0) Mean Corpuscular Hemoglobin 29.7 pg (26.0-33.0) Mean Corpuscular Hemoglobin Concent 34.4 g/dL (32.0-36.0) Red Cell Distribution Width 13.2 % (11.5-14.5) Mean Platelet Volume 8.8 fL (7.2-11.1) Neutrophils (%) (Auto) 78.0 % (39.4-72.5) Lymphocytes (%) (Auto) 16.5 % (17.6-49.6) Monocytes (%) (Auto) 4.2 % (4.1-12.4) Eosinophils (%) (Auto) 0.6 % (0.4-6.7) Basophils (%) (Auto) 0.7 % (0.3-1.4) Nucleated RBC Relative Count (auto) 0.0 /100WBC Neutrophils # (Auto) 10.4 K/uL (2.0-7.4) Lymphocytes # (Auto) 2.2 K/uL (1.3-3.6) Monocytes # (Auto) 0.6 K/uL (0.3-1.0) Eosinophils # (Auto) 0.1 K/uL (0.0-0.5) Basophils # (Auto) 0.1 K/uL (0.0-0.1) Nucleated RBC Absolute Count (auto) 0.00 K/uL Sodium Level 140 mmol/L (137-145) Potassium Level 3.7 mmol/L (3.5-5.0) Chloride Level 106 mmol/L (98-107) Carbon Dioxide Level 20 mmol/L (22-31) Blood Urea Nitrogen 13 mg/dl (7-18) Creatinine 0.90 mg/dl (0.52-1.04) Glomerular Filtration Rate Calc > 60.0 Random Glucose 104 mg/dl (75-110) Calcium Level 9.9 mg/dl (8.4-10.2) Total Bilirubin 0.4 mg/dl (0.2-1.3) Aspartate Amino Transf (AST/SGOT) 40 U/L (0-35) Alanine Aminotransferase (ALT/SGPT) 30 U/L (0-56) Alkaline Phosphatase 60 U/L (0-126) Total Protein 7.8 g/dl (6.3-8.2) Albumin 4.4 g/dl (3.5-5.0) Lipase 40 U/L (23-300) Human Chorionic Gonadotropin, Qual Negative (NEGATIVE) Helicobacter pylori IgG Antibody Negative (NEGATIVE) Chemistry Test 01/13/18 08:54 01/13/18 08:56 Stool Leukocytes, Qualitative Positive Clostridium Difficile Toxin A & B Negative Clostridium difficile Antigen Negative White Blood Count 13.3 k/uL (4.5-11.0) Red Blood Count 5.39 M/uL (4.17-5.56) Hemoglobin 16.0 g/dL (12.0-16.0) Hematocrit 46.4 % (34.0-47.0) Mean Corpuscular Volume 86.2 fL (80.0-96.0) Mean Corpuscular Hemoglobin 29.7 pg (26.0-33.0) Mean Corpuscular Hemoglobin Concent 34.4 g/dL (32.0-36.0) Red Cell Distribution Width 13.2 % (11.5-14.5) Platelet Count 321 K/uL (150-450) Mean Platelet Volume 8.8 fL (7.2-11.1) Neutrophils (%) (Auto) 78.0 % (39.4-72.5) Lymphocytes (%) (Auto) 16.5 % (17.6-49.6) Monocytes (%) (Auto) 4.2 % (4.1-12.4) Eosinophils (%) (Auto) 0.6 % (0.4-6.7) Basophils (%) (Auto) 0.7 % (0.3-1.4) Nucleated RBC Relative Count (auto) 0.0 /100WBC Neutrophils # (Auto) 10.4 K/uL (2.0-7.4) Lymphocytes # (Auto) 2.2 K/uL (1.3-3.6) Monocytes # (Auto) 0.6 K/uL (0.3-1.0) Eosinophils # (Auto) 0.1 K/uL (0.0-0.5) Basophils # (Auto) 0.1 K/uL (0.0-0.1) Nucleated RBC Absolute Count (auto) 0.00 K/uL Glomerular Filtration Rate Calc > 60.0 Calcium Level 9.9 mg/dl (8.4-10.2) Total Bilirubin 0.4 mg/dl (0.2-1.3) Aspartate Amino Transf (AST/SGOT) 40 U/L (0-35) Alanine Aminotransferase (ALT/SGPT) 30 U/L (0-56) Alkaline Phosphatase 60 U/L (0-126) Total Protein 7.8 g/dl (6.3-8.2) Albumin 4.4 g/dl (3.5-5.0) Lipase 40 U/L (23-300) Human Chorionic Gonadotropin, Qual Negative (NEGATIVE) Helicobacter pylori IgG Antibody Negative (NEGATIVE) Microbiology Microbiology Date/Time Source Procedure Growth Status 01/13/18 08:54 Stool Gram Stain - Final Resulted 01/13/18 08:54 Stool Stool Culture Pending Resulted ED Course/Re-evaluation ED Course 01/13/2018 8:50:37 am After history and physical exam was performed differential diagnosis was formulated which includes but is not limited to gastritis, gastroenteritis, given recent antibiotic use I will consider C. difficile. Also to consider acute cholecystitis, pancreatitis, appendicitis.Plan at this time will be to keep patient nothing by mouth, we will give IV fluids, pain medicine and nausea medicine. We will perform abdominal workup including CBC CMP lipase H. pylori stool cultures CT scan of the abdomen and pelvis 01/13/2018 10:23:[address] scan no visualization of the appendix however no secondary signs of appendicitis noted. Previous "peptic ulcer" seen on prior CTs is no longer there. Patient negative for C. difficile toxin a and B- for H. pylori but positive for fecal leukocytes. We'll treat as an infectious colitis Re-evaluation 01/13/2018 10:18:02 am pain improved after morphine. Slightly elevated white count at 13,000 and otherwise labs unremarkable. C. difficile toxin a and B-. H. pylori test negative Decision to Disposition Date: Jan 13, 2018 Decision to Disposition Time: 10:24 Depart Departure Latest Vital Signs Vital Signs Date Time Temp Pulse Resp B/P (MAP) Pulse Ox O2 Delivery O2 Flow Rate FiO2 01/13/18 10:16 87 98 Nasal Cannula 2 01/13/18 10:00 119/83 (95) 01/13/18 08:20 97.8 22 Impression: Primary Impression: Abdominal pain Additional Impression: Colitis Condition: Improved Disposition: HOME OR SELF-CARE New Scripts Metronidazole (FLAGYL) 500 Mg Tablet 500 MG PO BID, #14 TAB 0 Refills Prov: MARY AGUDELO MD 01/13/18 Ciprofloxacin Hcl 500 Mg Tab (CIPRO 500 MG TAB) 500 Mg Tablet 500 MG PO BID, #14 TAB 0 Refills Prov: MARY AGUDELO MD 01/13/18 Ondansetron Hcl (ZOFRAN) 4 Mg Tablet 4 MG PO Q8H for Nausea, #15 TAB 0 Refills Prov: MARY AGUDELO MD 01/13/18 Dicyclomine Hcl (DICYCLOMINE HCL) 20 Mg Tablet 20 MG PO QID for abdominal cramping, #20 TAB 0 Refills Prov: MARY AGUDELO MD 01/13/18 Patient Instructions: Abdominal Pain (ED) Additional Instructions: The radiologist did not visualize the appendix on CT scan today, however there are no secondary signs of appendicitis on your CT scan. It will be important to follow your symptoms closely over the next few days. If at any time you have worsening abdominal pain, fever or intractable nausea or vomiting, you should return to the emergency department for reevaluation immediately Problem Qualifiers Primary Impression: Abdominal pain Abdominal location: generalized Qualified Codes: R10.84 - Generalized abdominal pain MARY AGUDELO MD Jan 13, 2018 08:17
[2018-01-13] MEDS ORDERED: NS(*) 0.9% 1000 ML BAG 1,000 ML IV ONE (08:36)
[2018-01-13] MEDS ORDERED: ONDANSETRON 4 MG/2 ML VIAL IVP ONE (08:40)
[2018-01-13] MEDS ORDERED: MORPHINE 4 MG/ML SDV IVP ONE (08:40)
[2018-01-13] MEDS ORDERED: DIPHENOX/ATROPINE 2.5-0.025MG PO ONE (08:45)
[2018-01-13] MEDS ORDERED: IOPAMIDOL 76% 75 ML INFUS BTL 75 ML ONE (09:01)
[2018-01-13 09:10] LABS: PLATELET COUNT, AUTOMATED 321 K/uL (150-450)
[2018-01-13 10:00] VITALS: BP 119/83
--- NOTE | 2018-01-13 10:16 | RADIOLOGY IMAGING REPORT ---
FACILITY: [facility] PATIENT NAME: Saida Mckeon : 1995 MR: [id number] V: [id number] EXAM DATE: ORDERING PHYSICIAN: MARY AGUDELO TECHNOLOGIST: [facility] Patient: Saida Mckeon : 1995 Visit/Account:[id number] Date of Sevice: 01/13/2018 ABDOMEN/PELVIS WITH CONTRAST HISTORY: , rlq pain TECHNIQUE: CT abdomen and pelvis with intravenous contrast. One of the following dose optimization techniques was utilized in the performance of this exam: autom ated exposure control; adjustment of the mA and/or kV according to patient size; or use of iterative reconstruction technique. Specific details can be referenced in the facility?s radiology CT exam oper ational policy. CONTRAST: 69 mL [id number]-[id number] COMPARISON: 01/10/2018 FINDINGS: Visualized lung bases: Negative. Hepatobiliary: Negative. Spleen: Negative. Adrenals: Negative. Pancreas: Negative. Kidneys/: Negative. GI: The previously described possible penetrating ulcer at the level of the gastric antrum is no oth er early apparent. Fluid-filled loop of proximal duodenum is present at this level. No inflammatory c hanges are identified. There is no evidence of pneumoperitoneum. The large and small bowel are nondilated. Within the right lower quadrant, the appendix is not reliab ly identified. No inflammatory changes, free fluid or lymph node enlargement are identified. Vessels/spaces/nodes: Negative. Bones/soft tissues: Negative. IMPRESSION: Within the right lower quadrant, the appendix is nonvisualized, however, no secondary signs of append icitis are identified. The large and small bowel are normal in appearance. Possible penetrating ulcer involving the gastric antrum described on prior study is not readily appar ent on today's exam and may have been a decompressed portion of the proximal duodenum. This could be confirmed with endoscopy. Report Dictated By: Salo Randolph at 01/13/2018 9:59 AM Report E-Signed By: Salo Randolph at 01/13/2018 10:12 AM WSN:[id number]
[2018-01-13] MEDS ORDERED: ONDA4TAB97 PO (10:21)
[2018-01-13] MEDS ORDERED: DICY20TA70 PO (10:21)
[2018-01-13] MEDS ORDERED: METR-1 PO (10:23)
[2018-01-13] MEDS ORDERED: CIPR-344 PO (10:23)
[2018-01-14] MEDS ORDERED: TRAM-420 PO (12:42)
== END 2018-01-13 10:37 | disposition home or self-care (01) ==
LOC: ER 08:31
DX: K52.9 Noninfective gastroenteritis and colitis, unspecified (principal); R10.84 Generalized abdominal pain
CPT/HCPCS: 74177; 83630; 83690; 84703; 85025; 86677; 87045; 87205; 87324; 87449; 96374; 96375; 99284; J2270; J2405; J7030; Q9967; 82040; 82247; 82310; 82374; 82435; 82565; 82947; 84075; 84132; 84155; 84295; 84450; 84460; 84520

== ENCOUNTER 2018-01-14 09:45 | Emergency (ER) | payer MEDICAID ==
[2015-03-03 13:05] VITALS: Wt 59.0 kg
[~2018-01-14 09:45] MED LIST changes: +CIPR-344 PO; +DICY20TA70 PO; +METR-1 PO; +ONDA4TAB97 PO
[2018-01-14] MEDS ORDERED: fentaNYL CITR 100 MCG/2 ML AMP IVP ONE (10:20)
[2018-01-14] MEDS ORDERED: ONDANSETRON 4 MG/2 ML VIAL IVP ONE (10:20)
[2018-01-14] MEDS ORDERED: NS(*) 0.9% 1000 ML BAG 1,000 ML IV ONE (10:20)
[2018-01-14 10:43] LABS: PLATELET COUNT, AUTOMATED 246 K/uL (150-450)
--- NOTE | 2018-01-14 11:07 | RADIOLOGY IMAGING REPORT ---
FACILITY: [facility] PATIENT NAME: Saida Mckeon : 1995 MR: [id number] V: [id number] EXAM DATE: ORDERING PHYSICIAN: MARIA TERESA SANDERS TECHNOLOGIST: [place] [facility] [place]ida Mcke[place] : 1995 Visit/Account:[id number] Date of Sevice: 01/14/2018 Abdomen, 1 View History: Abdominal pain Comparison: CT abdomen and pelvis 11/13/2017 Findings: Bowel: Bowel is empty and decompressed. Calcifications: There are no radiopaque urinary stones. Bones: Negative Liver and spleen: Unremarkable Chest bases: Negative Other: none IMPRESSION: No evidence of bowel obstruction or colonic constipation. Report Dictated By: Lyssa Andrews MD at 01/14/2018 11:01 AM Report E-Signed By: Lyssa Andrews MD at 01/14/2018 11:02 AM WSN:[email or web address]
--- NOTE | 2018-01-14 12:01 | RADIOLOGY IMAGING REPORT ---
FACILITY: [facility] PATIENT NAME: Saida Mckeon : 1995 MR: [id number] V: [id number] EXAM DATE: ORDERING PHYSICIAN: MARIA TERESA SANDERS TECHNOLOGIST: [place] [facility] [place] Saida Mckeon : 1995 Visit/Account:[id number] Date of Sevice: 01/14/2018 Exam type: RIGHT LOWER QUADRANT History: RLQ abd pain Comparison: None. Findings: The appendix was not visualized. There was no demonstration of focal fluid collection or focal mass in the right lower quadrant. Right common femoral artery and vein appeared patent IMPRESSION: 1. The appendix is not visualized sonographically. No other abnormality the right lower quadrant se en. If acute appendicitis is of strong clinical concern CT of the abdomen and pelvis is recommended Report Dictated By: Yamilet Brandt MD at 01/14/2018 11:55 AM Report E-Signed By: Yamilet Brandt MD at 01/14/2018 11:57 AM WSN:[email or web address]
[2018-01-14 12:16] VITALS: BP 101/64
[2018-01-14] MEDS ORDERED: TRAM-420 PO (12:42)
--- NOTE | 2018-01-14 12:44 | ER Report ---
History and Physical Time Seen By MD: 11:00 Hx. of Stated Complaint: Pt. has abdominal RLQ pain. Pt. was seen here yesterday and had a CT scan. She was told that she had a perforated stomach ulcer. She tried to get in to see Dr. Russo today, but he told her if she was having a lot of pain to come back to the ED. Afebrile in triage. Vitals stable. HPI/ROS CHIEF COMPLAINT: Diffuse abdominal pain HISTORY OF PRESENT ILLNESS: Patient is a 22-year-old female here with complaints of diffuse abdominal pain, worse in the periumbilical and epigastric region. Patient was evaluated on the and the for similar symptoms. Both visits she had a CT imaging scan which showed no acute appendicitis. Patient was placed on Carafate and antimicrobial therapy which she has continued to take. Patient is afebrile at time of evaluation, hemodynamically stable. REVIEW OF SYSTEMS: Constitutional: No fever, no chills. Eyes: No discharge. ENT: No sore throat. Cardiovascular: No chest pain, no palpitations. Respiratory: No cough, no shortness of breath. Gastrointestinal: + Diffuse abdominal pain, no vomiting, + nausea. Genitourinary: No hematuria. Musculoskeletal: No back pain. Skin: No rashes. Neurological: No headache. Allergies: Coded Allergies: No Known Drug Allergies (Verified , 01/10/18) Home Meds Active Scripts Tramadol Hcl (TRAMADOL HCL) 50 Mg Tablet, 50 MG PO Q6H PRN for PAIN, #12 TAB 0 Refills Prov:MARIA TERESA SANDERS DO 01/14/18 Ondansetron Hcl (ZOFRAN) 4 Mg Tablet, 4 MG PO Q8H for Nausea, #15 TAB 0 Refills Prov:MARY AGUDELO MD 01/13/18 Tramadol Hcl (TRAMADOL HCL) 50 Mg Tablet, 50 MG PO Q6H PRN for PAIN, #15 TAB 0 Refills Prov:HERB ROSALES MD 01/10/18 Amoxicillin/Pot Clav 875-125 Mg Tab (AUGMENTIN 875-125 TABLET) 1 Each Tablet, 1 TAB PO Q12H, #14 TAB 0 Refills Prov:HERB ROSALES MD 01/10/18 Sucralfate (CARAFATE) 1 Gm Tablet, 1 GM PO QID, #120 TAB 0 Refills Prov:HERB ROSALES MD 01/10/18 Pantoprazole Sodium (PANTOPRAZOLE SODIUM) 40 Mg Tablet.dr, 40 MG PO BID, #60 TAB.SR 0 Refills Prov:HERB ROSALES MD 01/10/18 Fluoxetine Hcl (PROZAC) 40 Mg Capsule, 40 MG PO QDAY, #90 CAPSULE 1 Refill Prov:CAROL SUAZO DO 12/28/17 Reported Medications Norgestimate-Ethinyl Estradiol (TRI-SPRINTEC) 1 Each Tablet, 1 EACH PO DAILY 11/03/17 Discontinued Reported Medications Hydrocodone Bit/Acetaminophen (NORCO 5-325 TABLET) 1 Each Tablet, 1 EACH PO Q4 PRN for PAIN, #20 TAB 11/06/17 Butalb/Acetaminophen/Caff 50-325-40 Mg (FIORICET 50-325-40) 1 Each Tablet, 1-2 TAB PO Q4H PRN for HEADACHE, #30 TAB 10/30/17 Discontinued Scripts Metronidazole (FLAGYL) 500 Mg Tablet, 500 MG PO BID, #14 TAB 0 Refills Prov:MARY AGUDELO MD 01/13/18 Ciprofloxacin Hcl 500 Mg Tab (CIPRO 500 MG TAB) 500 Mg Tablet, 500 MG PO BID, #14 TAB 0 Refills Prov:MARY AGUDELO MD 01/13/18 Dicyclomine Hcl (DICYCLOMINE HCL) 20 Mg Tablet, 20 MG PO QID for abdominal cramping, #20 TAB 0 Refills Prov:MARY AGUDELO MD 01/13/18 Metronidazole (METRONIDAZOLE) 500 Mg Tablet, 500 MG PO BID, #28 TAB Prov:DAGOBERTO REYNAGA 11/03/17 Doxycycline Hyclate (DOXYCYCLINE HYCLATE) 100 Mg Tablet, 100 MG PO BID, #28 TAB Prov:DAGOBERTO REYNAGA 11/03/17 Hx Smoking: Yes Smoking Status: Current: Every Day Smoker, Former Smoker, Light Tobacco Smoker Exposure to Second Hand Smoke?: Yes Hx Substance Use Disorder: No Hx Alcohol Use: No Constitutional Vital Sign - Last 24 Hours 01/14/18 01/14/18 01/14/18 01/14/18 09:51 09:52 09:55 10:00 Temp 98.0 Pulse 76 81 103 Resp 16 B/P (MAP) 112/75 (87) 112/75 111/86 (94) Pulse Ox 100 99 98 O2 Delivery Room Air 01/14/18 01/14/18 01/14/18 01/14/18 10:05 10:10 10:15 10:20 Pulse 80 84 89 73 Pulse Ox 100 97 98 100 01/14/18 01/14/18 01/14/18 01/14/18 10:25 10:30 10:35 10:40 Pulse 80 79 78 93 B/P (MAP) 119/89 (99) Pulse Ox 99 90 100 99 01/14/18 01/14/18 01/14/18 01/14/18 10:45 10:50 10:55 11:00 Pulse 72 65 68 68 B/P (MAP) 110/93 Pulse Ox 98 97 95 91 01/14/18 01/14/18 01/14/18 01/14/18 11:05 11:10 11:15 11:20 Pulse 63 63 64 61 Pulse Ox 93 100 99 99 01/14/18 01/14/18 01/14/18 01/14/18 11:25 11:30 11:35 11:40 Pulse 65 60 62 67 B/P (MAP) 103/67 Pulse Ox 100 100 100 100 01/14/18 01/14/18 01/14/18 01/14/18 11:45 11:50 11:55 12:00 Pulse 64 69 68 Pulse Ox 100 100 100 100 01/14/18 01/14/18 01/14/18 12:10 12:15 12:16 Pulse 69 77 B/P (MAP) 101/64 Pulse Ox 98 97 Physical Exam General Appearance: The patient is alert, has no immediate need for airway protection and no signs of toxicity. Moderate distress secondary to pain Eyes: Pupils equal and round no pallor or injection. ENT, Mouth: Mucous membranes are moist. Respiratory: There are no retractions, lungs are clear to auscultation. Cardiovascular: Regular rate and rhythm. Gastrointestinal: Abdomen is soft and + diffusely tender with no rebound or guarding, no masses, bowel sounds normal. Neurological: No focal neurological deficits Skin: Warm and dry, no rashes. Musculoskeletal: Neck is supple non tender. Extremities are nontender, nonswollen and have full range of motion. DIFFERENTIAL DIAGNOSIS: After history and physical exam differential diagnosis was considered for abdominal pain including but not limited to appendicitis, cholecystitis, gastritis and urinary tract infection, peptic ulcer disease Medical Decision Making Data Points Result Diagram: 01/14/18 1025 01/14/18 1025 Laboratory Hematology Test 01/14/18 10:25 Red Blood Count 4.57 M/uL (4.17-5.56) Mean Corpuscular Volume 86.6 fL (80.0-96.0) Mean Corpuscular Hemoglobin 29.7 pg (26.0-33.0) Mean Corpuscular Hemoglobin Concent 34.2 g/dL (32.0-36.0) Red Cell Distribution Width 13.0 % (11.5-14.5) Mean Platelet Volume 8.7 fL (7.2-11.1) Neutrophils (%) (Auto) 52.8 % (39.4-72.5) Lymphocytes (%) (Auto) 40.1 % (17.6-49.6) Monocytes (%) (Auto) 5.6 % (4.1-12.4) Eosinophils (%) (Auto) 0.7 % (0.4-6.7) Basophils (%) (Auto) 0.8 % (0.3-1.4) Nucleated RBC Relative Count (auto) 0.0 /100WBC Neutrophils # (Auto) 2.7 K/uL (2.0-7.4) Lymphocytes # (Auto) 2.1 K/uL (1.3-3.6) Monocytes # (Auto) 0.3 K/uL (0.3-1.0) Eosinophils # (Auto) 0.0 K/uL (0.0-0.5) Basophils # (Auto) 0.0 K/uL (0.0-0.1) Nucleated RBC Absolute Count (auto) 0.00 K/uL Peripheral Blood Smear No Y/N Urine Color Straw Urine Clarity Clear Urine pH 6.0 pH (4.8-9.5) Urine Specific [place] 1.003 Urine Protein Negative mg/dL (NEGATIVE) Urine Glucose (UA) Negative mg/dL (NEGATIVE) Urine Ketones Negative mg/dL (NEGATIVE) Urine Blood Negative (NEGATIVE) Urine Nitrite Negative (NEGATIVE) Urine Bilirubin Negative (NEGATIVE) Urine Urobilinogen Negative mg/dL (0.2-1.9) Urine Leukocyte Esterase Negative (NEGATIVE) Urine RBC <1 /HPF (0-2/HPF) Urine WBC 2 /HPF (0-5/HPF) Urine Squamous Epithelial Cells Many /LPF (</=FEW) Urine Transitional Epithelial Cells Few /LPF (NONE-FEW) Urine Bacteria Few /HPF (NONE-FEW) Urine Mucus None /HPF (NONE-FEW) Sodium Level 139 mmol/L (137-145) Potassium Level 3.0 mmol/L (3.5-5.0) Chloride Level 107 mmol/L (98-107) Carbon Dioxide Level 21 mmol/L (22-31) Blood Urea Nitrogen 8 mg/dl (7-18) Creatinine 0.80 mg/dl (0.52-1.04) Glomerular Filtration Rate Calc > 60.0 Random Glucose 84 mg/dl (75-110) Calcium Level 8.5 mg/dl (8.4-10.2) Total Bilirubin 0.3 mg/dl (0.2-1.3) Aspartate Amino Transf (AST/SGOT) 32 U/L (0-35) Alanine Aminotransferase (ALT/SGPT) 24 U/L (0-56) Alkaline Phosphatase 55 U/L (0-126) C-Reactive Protein 4.5 mg/dl (<1.0) Total Protein 6.7 g/dl (6.3-8.2) Albumin 3.7 g/dl (3.5-5.0) Lipase 35 U/L (23-300) Human Chorionic Gonadotropin, Qual Negative (NEGATIVE) Chemistry Test 01/14/18 10:25 White Blood Count 5.2 k/uL (4.5-11.0) Red Blood Count 4.57 M/uL (4.17-5.56) Hemoglobin 13.6 g/dL (12.0-16.0) Hematocrit 39.6 % (34.0-47.0) Mean Corpuscular Volume 86.6 fL (80.0-96.0) Mean Corpuscular Hemoglobin 29.7 pg (26.0-33.0) Mean Corpuscular Hemoglobin Concent 34.2 g/dL (32.0-36.0) Red Cell Distribution Width 13.0 % (11.5-14.5) Platelet Count 246 K/uL (150-450) Mean Platelet Volume 8.7 fL (7.2-11.1) Neutrophils (%) (Auto) 52.8 % (39.4-72.5) Lymphocytes (%) (Auto) 40.1 % (17.6-49.6) Monocytes (%) (Auto) 5.6 % (4.1-12.4) Eosinophils (%) (Auto) 0.7 % (0.4-6.7) Basophils (%) (Auto) 0.8 % (0.3-1.4) Nucleated RBC Relative Count (auto) 0.0 /100WBC Neutrophils # (Auto) 2.7 K/uL (2.0-7.4) Lymphocytes # (Auto) 2.1 K/uL (1.3-3.6) Monocytes # (Auto) 0.3 K/uL (0.3-1.0) Eosinophils # (Auto) 0.0 K/uL (0.0-0.5) Basophils # (Auto) 0.0 K/uL (0.0-0.1) Nucleated RBC Absolute Count (auto) 0.00 K/uL Peripheral Blood Smear No Y/N Urine Color Straw Urine Clarity Clear Urine pH 6.0 pH (4.8-9.5) Urine Specific [place] 1.003 Urine Protein Negative mg/dL (NEGATIVE) Urine Glucose (UA) Negative mg/dL (NEGATIVE) Urine Ketones Negative mg/dL (NEGATIVE) Urine Blood Negative (NEGATIVE) Urine Nitrite Negative (NEGATIVE) Urine Bilirubin Negative (NEGATIVE) Urine Urobilinogen Negative mg/dL (0.2-1.9) Urine Leukocyte Esterase Negative (NEGATIVE) Urine RBC <1 /HPF (0-2/HPF) Urine WBC 2 /HPF (0-5/HPF) Urine Squamous Epithelial Cells Many /LPF (</=FEW) Urine Transitional Epithelial Cells Few /LPF (NONE-FEW) Urine Bacteria Few /HPF (NONE-FEW) Urine Mucus None /HPF (NONE-FEW) Glomerular Filtration Rate Calc > 60.0 Calcium Level 8.5 mg/dl (8.4-10.2) Total Bilirubin 0.3 mg/dl (0.2-1.3) Aspartate Amino Transf (AST/SGOT) 32 U/L (0-35) Alanine Aminotransferase (ALT/SGPT) 24 U/L (0-56) Alkaline Phosphatase 55 U/L (0-126) C-Reactive Protein 4.5 mg/dl (<1.0) Total Protein 6.7 g/dl (6.3-8.2) Albumin 3.7 g/dl (3.5-5.0) Lipase 35 U/L (23-300) Human Chorionic Gonadotropin, Qual Negative (NEGATIVE) Urinalysis Test 01/14/18 10:25 Urine Color Straw Urine Clarity Clear Urine pH 6.0 pH (4.8-9.5) Urine Specific [place] 1.003 Urine Protein Negative mg/dL (NEGATIVE) Urine Glucose (UA) Negative mg/dL (NEGATIVE) Urine Ketones Negative mg/dL (NEGATIVE) Urine Blood Negative (NEGATIVE) Urine Nitrite Negative (NEGATIVE) Urine Bilirubin Negative (NEGATIVE) Urine Urobilinogen Negative mg/dL (0.2-1.9) Urine Leukocyte Esterase Negative (NEGATIVE) Urine RBC <1 /HPF (0-2/HPF) Urine WBC 2 /HPF (0-5/HPF) Urine Squamous Epithelial Cells Many /LPF (</=FEW) Urine Transitional Epithelial Cells Few /LPF (NONE-FEW) Urine Bacteria Few /HPF (NONE-FEW) Urine Mucus None /HPF (NONE-FEW) EKG/Imaging Imaging Exam type: RIGHT LOWER QUADRANT History: RLQ abd pain Comparison: None. Findings: The appendix was not visualized. There was no demonstration of focal fluid moni ection or focal mass in the right lower quadrant. Right common femoral artery and vein appeared patent IMPRESSION: 1. The appendix is not visualized sonographically. No other abnormality the ri t lower quadrant seen. If acute appendicitis is of strong clinical concern CT of the abdomen and pelvis is recommended Abdomen, 1 View History: Abdominal pain Comparison: CT abdomen and pelvis 11/13/2017 Findings: Bowel: Bowel is empty and decompressed. Calcifications: There are no radiopaque urinary stones. Bones: Negative Liver and spleen: Unremarkable Chest bases: Negative Other: none IMPRESSION: No evidence of bowel obstruction or colonic constipation. ED Course/Re-evaluation ED Course Patient is a 22-year-old female here with complaints of diffuse, ongoing abdominal pain for the past week. Patient was evaluated initially on the finger on the for similar pain. Patient had repeat CT imaging on both visits. Both were negative for appendicitis. Patient is scheduled for an upcoming endoscopy with Dr. Palafox in a month and a half. She was started on Carafate and antimicrobial therapy which she is currently taking. I completed an ultrasound of the right lower quadrant which was unable to visualize the appendix. She was noted to have elevated CRP however no leukocytosis, electrolyte abnormality was identified. Patient was given fluids, analgesia and antiemetics. Patient is also identified with hypokalemia and advised to supplement with potassium and to follow-up in the next 2 days with PCP and consider referral elsewhere for sooner endoscopy if needed. Patient was advised to return promptly should develop worsening pain. Prescription for tramadol was given for analgesia and patient was advised to avoid spicy foods, acidic foods, gastric irritants and to continue her home Zofran as needed.. Decision to Disposition Date: Jan 14, 2018 Decision to Disposition Time: 13:01 Depart Departure Latest Vital Signs Vital Signs Date Time Temp Pulse Resp B/P (MAP) Pulse Ox O2 Delivery O2 Flow Rate FiO2 01/14/18 12:16 101/64 01/14/18 12:15 77 97 01/14/18 09:52 98.0 16 Room Air Impression: Primary Impression: Abdominal pain Additional Impression: Hypokalemia Condition: Improved Disposition: HOME OR SELF-CARE New Scripts Tramadol Hcl (TRAMADOL HCL) 50 Mg Tablet 50 MG PO Q6H PRN for PAIN, #12 TAB 0 Refills Prov: MARIA TERESA SANDERS DO 01/14/18 Patient Instructions: Abdominal Pain (ED), Hypokalemia (ED) Additional Instructions: Please drink plenty of water. You may take Tylenol up to 3 g daily for pain control and up to 1 tramadol every 6-8 hours as needed for pain breakthrough control. Please follow-up with her family physician next 2 days for follow-up evaluation and consider being referred to surgery or gastroenterology for endoscopy to evaluate for your pain. Ultrasound imaging did not identify appendicitis today nor did CT imaging yesterday. You're also diagnosed with low potassium, he may take potassium-containing supplements or potassium-containing foods and please have your blood rechecked in the next 2 days. Please return promptly with worsening abdominal pain, inability to tolerate oral intake, fevers, blood in the stool or urine. Problem Qualifiers MARIA TERESA SANDERS DO Jan 14, 2018 12:44
== END 2018-01-14 12:59 | disposition home or self-care (01) ==
LOC: ER 10:31
DX: R10.31 Right lower quadrant pain (principal); E87.6 Hypokalemia; F17.210 Nicotine dependence, cigarettes, uncomplicated
CPT/HCPCS: 74018; 76705; 81001; 83690; 84703; 85025; 86140; 96361; 96374; 96375; 99284; J2405; J3010; J7030; 82040; 82247; 82310; 82374; 82435; 82565; 82947; 84075; 84132; 84155; 84295; 84450; 84460; 84520

== ENCOUNTER → 2018-02-20 | Outpatient (CLI) | payer MEDICAID ==
[2015-03-03 13:05] VITALS: BMI 26.7
[~2018-02-20] MED LIST changes: -METR-160 PO; +METR500T54 PO
== END ==
LOC: LAB 08:31
PROVIDERS: ATTEND Obstetrics & Gynecology
DX: N92.6 Irregular menstruation, unspecified (principal)
CPT/HCPCS: 36415; 84702

== ENCOUNTER 2018-05-03 07:14 | Emergency (ER) | payer MEDICAID ==
[2015-03-03 13:05] VITALS: Wt 61.2 kg
[~2018-05-03 07:14] MED LIST changes: +AMOX500T10 PO; +METR500T15 PO; -METR500T54 PO
--- NOTE | 2018-05-03 07:52 | ER Report ---
History and Physical Time Seen By MD: 07:20 Hx. of Stated Complaint: RIB AND BACK PAIN HPI/ROS CHIEF COMPLAINT: Rib and back pain HISTORY OF PRESENT ILLNESS: 22-year-old female reports that she fell on her back on ice one week ago. She initially thought she had just bruised her ribs, has gone to urgent care for reevaluation where she had x-ray that did not show fracture. However, she states that symptoms have been worsening and now pain radiates throughout the left side of her back as well as left sided ribs. Pt reports that she is intermittently lightheaded and short of breath, especially with certain movements that exacerbate pain. She denies fever, chills, vomiting, abdominal pain, change in urination. Pain is constant and severe per pt. REVIEW OF SYSTEMS: Constitutional: No fever, no chills. Eyes: no blurred vision ENT: no difficulty swallowing Cardiovascular: No chest pain, no palpitations. Respiratory: above Gastrointestinal: No abdominal pain, no vomiting. Genitourinary: No hematuria. Musculoskeletal: above Skin: No rashes. Neurological: mild headache Remainder of the 14 system rev: Yes Allergies: Coded Allergies: No Known Drug Allergies (Verified , 05/03/18) Home Meds Active Scripts Methocarbamol (ROBAXIN) 500 Mg Tablet, 1000 MG PO TID for Muscle Relaxant, #20 TAB Prov:MARY CARDENAS MD 05/03/18 Fluoxetine Hcl (PROZAC) 40 Mg Capsule, 40 MG PO QDAY, #90 CAPSULE 1 Refill Prov:CAROL SUAZO DO 12/28/17 Discontinued Reported Medications Norgestimate-Ethinyl Estradiol (TRI-SPRINTEC) 1 Each Tablet, 1 EACH PO DAILY 11/03/17 Discontinued Scripts Amoxicillin 500 Mg Tab (AMOXICILLIN 500 MG TAB) 500 Mg Tablet, 1 TAB PO Q8H for 10 Days, #30 TAB 0 Refills Prov:CAROL SUAZO DO 03/04/18 Tramadol Hcl (TRAMADOL HCL) 50 Mg Tablet, 50 MG PO Q6H PRN for PAIN, #12 TAB 0 Refills Prov:MARIA TERESA SANDERS DO 01/14/18 Ondansetron Hcl (ZOFRAN) 4 Mg Tablet, 4 MG PO Q8H for Nausea, #15 TAB 0 Refills Prov:MARY AGUDELO MD 01/13/18 Tramadol Hcl (TRAMADOL HCL) 50 Mg Tablet, 50 MG PO Q6H PRN for PAIN, #15 TAB 0 Refills Prov:HERB ROSALES MD 01/10/18 Amoxicillin/Pot Clav 875-125 Mg Tab (AUGMENTIN 875-125 TABLET) 1 Each Tablet, 1 TAB PO Q12H, #14 TAB 0 Refills Prov:HERB ROSALES MD 01/10/18 Sucralfate (CARAFATE) 1 Gm Tablet, 1 GM PO QID, #120 TAB 0 Refills Prov:HERB ROSALES MD 01/10/18 Pantoprazole Sodium (PANTOPRAZOLE SODIUM) 40 Mg Tablet.dr, 40 MG PO BID, #60 TAB.SR 0 Refills Prov:HERB ROSALES MD 01/10/18 Hx Smoking: Yes Smoking Status: Current: Every Day Smoker, Former Smoker, Light Tobacco Smoker Exposure to Second Hand Smoke?: Yes Hx Substance Use Disorder: No Hx Alcohol Use: No Constitutional Vital Sign - Last 24 Hours 05/03/18 05/03/18 05/03/18 05/03/18 07:23 07:23 07:30 07:44 Temp 98.2 Pulse 96 91 Resp 16 B/P (MAP) 131/102 (112) 131/102 121/99 (106) Pulse Ox 100 99 O2 Delivery Room Air 05/03/18 08:00 B/P (MAP) 128/103 (111) Physical Exam General Appearance: The patient is alert, has no immediate need for airway protection and no current signs of toxicity. Eyes: Pupils equal and round no injection. Respiratory: Chest is non tender, lungs are clear to auscultation. Cardiac: regular rate and rhythm no m/r/g Gastrointestinal: Abdomen is soft and non tender, no masses, bowel sounds normal. Musculoskeletal: Neck: Neck is supple and non tender. Extremities have full range of motion and are non tender. Pt has ttp throughout left lower thoracic area without stepoff or crepitus; she has ttp throughout left paraspinal muscles from lumbar to thoracic that exactly reproduces her pain. She has no midline ttp. Skin: No rashes or lesions. DIFFERENTIAL DIAGNOSIS: After history and physical exam differential diagnosis was considered for rib fracture, pneumothorax, pneumonia, muscle spasm, spine injury, splenic injury, renal hematoma, or other complication of fall Medical Decision Making ED Course/Re-evaluation ED Course 22-year-old female presents days after her initial injury with pain throughout her left side and active. She has findings on exam of paraspinal muscle spasm, however no findings consistent with multiple rib fractures, pneumothorax, splenic injury, or other emergent complications. Of note, she has no contusion, abrasions on the skin. I discussed at length the potential injuries as well as management. Her reported pain is somewhat out of proportion for the findings on exam. I recommended continued ibuprofen, Tylenol, will add in muscle relaxant, and I recommend ice, massage. Of note, patient has had multiple visits to the emergency department for pain in various areas, and has not frequently seen her primary doctor. I do recommend that she follows up with her primary doctor for any further needs related to this injury, however with strict return precautions for shortness of breath, fever, syncope, or other concerns. Decision to Disposition Date: May 03, 2018 Decision to Disposition Time: 08:00 Depart Departure Latest Vital Signs Vital Signs Date Time Temp Pulse Resp B/P (MAP) Pulse Ox O2 Delivery O2 Flow Rate FiO2 05/03/18 08:00 128/103 (111) 05/03/18 07:44 91 99 05/03/18 07:23 98.2 16 Room Air Impression: Primary Impression: Muscle spasm Condition: Condition Unchanged Disposition: HOME OR SELF-CARE Referrals: CAROL SUAZO DO 2 Days New Scripts Methocarbamol (ROBAXIN) 500 Mg Tablet 1000 MG PO TID for Muscle Relaxant, #20 TAB Prov: MARY CARDENAS MD 05/03/18 Patient Instructions: Muscle Spasm (ED) Additional Instructions: As we discussed, please see your primary doctor for follow up and reassessment. Please return for fever, difficulty breathing, or any concerns. MARY CARDENAS MD May 03, 2018 07:52
[2018-05-03] MEDS ORDERED: ACETAMINOPHEN 325 MG TAB PO ONE (07:55)
[2018-05-03] MEDS ORDERED: METH-542 PO (07:56)
[2018-05-03 08:00] VITALS: BP 128/103
[2018-05-03] MEDS ORDERED: NAPR220C12 PO (11:22)
== END 2018-05-03 08:18 | disposition home or self-care (01) ==
LOC: ER 07:34
DX: M62.838 Other muscle spasm (principal)
CPT/HCPCS: 99283

== ENCOUNTER 2018-06-26 17:53 | Emergency (ER) | payer MEDICAID ==
[2015-03-03 13:05] VITALS: Wt 59.0 kg
[~2018-06-26 17:53] MED LIST changes: +METH-542 PO; +NAPR220C12 PO
--- NOTE | 2018-06-26 18:07 | ER Report ---
History and Physical Time Seen By MD: 18:07 Hx. of Stated Complaint: blood clot in hand HPI/ROS CHIEF COMPLAINT: Distal right upper extremity pain HISTORY OF PRESENT ILLNESS: Patient is a 22-year-old female with a history of factor V Leiden here with complaints of distal right upper extremity pain in the 3rd and 4th digits. Patient reportedly went out to smoke a cigarette in the cold and afterward she had approximately 10 minutes of 3rd digit pallor and pain which prompted the patient to go in for evaluation at urgent care. Patient was concerned of having an upper extremity clot. Patient denies fevers, chills, chest pain, shortness of breath. REVIEW OF SYSTEMS: Constitutional: No fever, no chills. Cardiovascular: No chest pain, no palpitations. Respiratory: No cough, no shortness of breath. Gastrointestinal: No abdominal pain, no vomiting. Musculoskeletal: + Distal right upper extremity pain, pallor Skin: Resolved pallor of the 3rd distal digit of the right upper extremity Neurological: Difficult neurological deficits Allergies: Coded Allergies: No Known Drug Allergies (Verified , 06/26/18) Home Meds Discontinued Scripts Naproxen Sodium (ALEVE) 220 Mg Capsule, 440 MG PO BID for PAIN for 14 Days, #56 CAPSULE 0 Refills take 2 tablets (440mg) twice a day for 7 days and then PRN. Not to exceed 4 tablets in 24 hours Prov:HEBER BOYD CNM 05/03/18 Methocarbamol (ROBAXIN) 500 Mg Tablet, 1000 MG PO TID for Muscle Relaxant, #20 TAB Prov:MARY CARDENAS MD 05/03/18 Fluoxetine Hcl (PROZAC) 40 Mg Capsule, 40 MG PO QDAY, #90 CAPSULE 1 Refill Prov:CAROL SUAZO DO 12/28/17 Hx Smoking: Yes Smoking Status: Current: Every Day Smoker, Former Smoker, Light Tobacco Smoker Exposure to Second Hand Smoke?: Yes Hx Substance Use Disorder: No Hx Alcohol Use: No Constitutional Vital Sign - Last 24 Hours 06/26/18 06/26/18 18:04 18:05 Pulse 91 Resp 16 B/P (MAP) 122/87 (99) 122/87 Pulse Ox 98 O2 Delivery Room Air Physical Exam General Appearance: The patient is alert, has no immediate need for airway protection and no signs of toxicity. No acute distress Respiratory: There are no retractions, lungs are clear to auscultation. Cardiovascular: Regular rate and rhythm. Gastrointestinal: Abdomen is soft and non tender, no masses, bowel sounds normal. Neurological: No focal neurological deficits amend moving all extremities and digits spontaneously without issues Skin: No discoloration, bruising, rashes or ecchymosis of the upper extremities Musculoskeletal: + Mild tenderness on palpation of the distal right 3rd digit, mildly cold to the touch. DIFFERENTIAL DIAGNOSIS: After history and physical exam differential diagnosis was considered for Raynaud's phenomenon, venous thrombosis, PVD, cold exposure Medical Decision Making EKG/Imaging Imaging PATIENT NAME: Saida Mckeon : 1995 MR: [id number] V: [id number] EXAM DATE: [id number] ORDERING PHYSICIAN: MARIA TERESA SANDERS TECHNOLOGIST: Location: [facility] - [place] Patient: Saida Mckeon : 1995 Visit/Account:[id number] Date of Sevice: 06/26/2018 INDICATION: Factor V hx, concern for clot in distal RUE. DATE: 06/26/2018 7:38 PM. TECHNIQUE: CTA UPPER EXTREMITY. Contrast-enhanced axial CT imaging was performed to the right upper extremity with sagittal and coronal reformats. MIP reconstructions were submitted. One of the following dose optimization techniques was utilized in the performance of this exam: Automated exposure control; adjustment of the mA and/or kV according to the patient's size; or use of an iterative reconstruction technique. Specific details can be referenced in the facility's radiology CT exam operational policy. 75 mL Isovue 370 administered. COMPARISON: None relevant. FINDINGS: The right subclavian, axillary, brachial, radial, and ulnar arteries are patent. Arterial branches can be followed into the hand. The digital arteries are not well defined, but this is likely technique related. No acute osseous abnormality. Soft tissues are unremarkable. IMPRESSION: No evidence of arterial occlusion in the right upper extremity. ED Course/Re-evaluation ED Course Patient is a 22-year-old female here with complaints of distal right upper extremity pain, pallor or smoking a cigarette outside in the cold. Patient reports 10 minute history of pallor and the 3rd distal extremity with tenderness on palpation. Patient was sent over from urgent care due to concern for clot formation with her history of factor V. Patient had intact sensation, no obvious signs of ecchymosis or edema at the site. CTA of the right upper extremity showed no signs of clots, obstructions or stenosis. Patient symptoms likely secondary to Raynaud's. Recommend close PCP follow-up for further evaluation. Patient was neurovascularly intact, hemodynamically stable at time of discharge. Return precautions provided. Patient was given education materials regarding Raynaud's phenomenon and advised to consider smoking cessation. Decision to Disposition Date: Jun 26, 2018 Decision to Disposition Time: 19:54 Depart Departure Latest Vital Signs Vital Signs Date Time Temp Pulse Resp B/P (MAP) Pulse Ox O2 Delivery O2 Flow Rate FiO2 06/26/18 18:05 91 16 122/87 98 Room Air Impression: Primary Impression: Hand pain, right Additional Impression: Discoloration of skin Condition: Improved Disposition: HOME OR SELF-CARE Additional Instructions: Please follow up with your family doctor in the next 24-48 hours. You were found to have no clots evident on CT imaging. Please consider smoking cessation as this will likely exacerbate your circulation in the upper extremities. Please return immediately if you develop worsening pain, persistent discoloration, fevers, chest pain, trouble breathing. Please review the provided documents regarding Raynaud's. Problem Qualifiers MARIA TERESA SANDERS DO Jun 26, 2018 18:07
[2018-06-26] MEDS ORDERED: IOPAMIDOL 76% 150 ML INFUS BTL 150 ML ONE (18:46)
[2018-06-26] MEDS ORDERED: NS(*) 0.9% 50 ML BAG 50 ML ONE (18:47)
--- NOTE | 2018-06-26 19:50 | RADIOLOGY IMAGING REPORT ---
FACILITY: [facility] - [place] PATIENT NAME: Saida Mckeon : 1995 MR: [id number] V: [id number] EXAM DATE: [id number] ORDERING PHYSICIAN: MARIA TERESA SANDERS TECHNOLOGIST: Location: Patient: Saida Mckeon : 1995 Visit/Account:[id number] Date of Sevice: 06/26/2018 INDICATION: Factor V hx, concern for clot in distal RUE. DATE: 06/26/2018 7:38 PM. TECHNIQUE: CTA UPPER EXTREMITY. Contrast-enhanced axial CT imaging was performed to the right upper extremity with sagittal and coronal reformats. MIP reconstructions were submitted. One of the [employer] dose optimization techniques was utilized in the performance of this exam: Automated exposure co ntrol; adjustment of the mA and/or kV according to the patient's size; or use of an iterative recons truction technique. Specific details can be referenced in the facility's radiology CT exam operation al policy. 75 mL Isovue 370 administered. COMPARISON: None relevant. FINDINGS: The right subclavian, axillary, brachial, radial, and ulnar arteries are patent. Arterial branches can be followed into the hand. The digital arteries are not well defined, but this is likel y technique related. No acute osseous abnormality. Soft tissues are unremarkable. IMPRESSION: No evidence of arterial occlusion in the right upper extremity. Report Dictated By: Kadie Galvan MD at 06/26/2018 7:38 PM Report E-Signed By: Kadie Galvan MD at 06/26/2018 7:46 PM WSN:[id number]
[2018-06-26 20:00] VITALS: BP 131/82
== END 2018-06-26 20:17 | disposition home or self-care (01) ==
LOC: ER 18:28
DX: M79.641 Pain in right hand (principal)
CPT/HCPCS: 99284; J7050; Q9967; 73206

== ENCOUNTER → 2018-06-28 | Outpatient (CLI) | payer MEDICAID ==
[2015-03-03 13:05] VITALS: BMI 26.7
--- NOTE | 2018-06-28 18:34 | RADIOLOGY IMAGING REPORT ---
FACILITY: [facility] - [place] PATIENT NAME: Saida Mckeon : 1995 MR: [id number] V: [id number] EXAM DATE: ORDERING PHYSICIAN: MARGARET SWAN TECHNOLOGIST: [place] [facility] [place] Saida Mckeon : 1995 Visit/Account:[id number] Date of Sevice: 06/28/2018 Venous Doppler ultrasound left lower extremity Indication: Left calf pain factor V 5. Comparison: None Available Findings: Duplex Doppler and color flow imaging was performed. The common femoral, femoral, and popl iteal veins are all patent and compressible with normal Doppler wave forms. There are normal respons es to augmentation. The posterior tibial and peroneal veins are patent in the calf. The proximal greater saphenous vein is also normal. Subcutaneous tissues are unremarkable. IMPRESSION: 1. No evidence of deep venous thrombosis of the left lower extremity. Report Dictated By: Jacobo Medina at 06/28/2018 6:29 PM Report E-Signed By: Jacobo Medina at 06/28/2018 6:31 PM WSN:[id number]
== END ==
LOC: US 17:08
PROVIDERS: ATTEND Physician Assistant
DX: R60.9 Edema, unspecified (principal); M79.89 Other specified soft tissue disorders; M79.662 Pain in left lower leg